=== PATIENT | female | born 1935 | race Caucasian/White ===

== ENCOUNTER 2016-05-08 16:09 | Emergency (ER) | payer MEDICARE, BC ==
[~2016-05-08] VITALS: Ht 165.1 cm; Wt 86.2 kg
[2016-05-08 16:12] VITALS: BP 202/80
--- NOTE | 2016-05-08 16:51 | EKG ---
[facility] [address] [place] [address] Test Date: 2016-05-08 Test Time: 16:42:08 Pat Name: LORIE OBRIEN Department: Room: Gender: Female Transcriptionist: = : 1935 Requested By: JOSHUA RODRIGUEZ Order Number: [id number] Reading MD: Ragini Escamilla Measurements Intervals [place] Rate: 53 P: [place]: QRS: 12 QRSD: 94 T: 19 QT: 450 QTc: 425 Interpretive Statements ATRIAL FIBRILLATION CONTROLLED VENTRICULAR RESPONSE ABNORMAL EKG Electronically Signed On 05-10-2016 11:01:15 CDT by Ragini Escamilla
[2016-05-08 16:56] LABS: BASO # 0.1 x10^3/uL (0.0-0.2); BASO % 1 % (0-3); EOS % 3 % (0-3); HEMATOCRIT 36.1 % (36.0-47.0); HEMOGLOBIN 11.5 g/dL (12.0-15.5); LYMPH % 25 % (24-48); MEAN CORPUSCULAR HEMOGLOBIN 26 pg (25-35); MEAN CORPUSCULAR HGB CONC 32 g/dL (31-37); MEAN CORPUSCULAR VOLUME 82 fL (79-100); MONO % 8 % (0-9); NEUT % 64 % (31-73); PLATELET COUNT 198 x10^3/uL (140-400); RED CELL DISTRIBUTION WIDTH 16.1 % (11.5-14.5); WHITE BLOOD COUNT 8.3 x10^3/uL (4.0-11.0)
[2016-05-08 16:58] LABS: NEG OBC FOB NEG; POS OBC FOB POS
[2016-05-08 17:05] LABS: PROTHROMBIN TIME PATIENT 21.9 SEC (11.7-14.0)
--- NOTE | 2016-05-08 17:05 | ED.ADGEN ---
Past Medical History Past Medical History: A-Fib, Hypertension Additional Past Medical Histor: diet control diabetes Past Surgical History: Appendectomy, Cholecystectomy, Hysterectomy, Tubal ligation, Other Additional Past Surgical Histo: hemorrhoidectomy, breast bx, varicose veins Alcohol Use: None Drug Use: None Adult General Chief Complaint Chief Complaint: RECTAL BLEED HPI HPI Patient is a 81 year old and, history of atrial fibrillation on Coumadin, type 2 diabetes mellitus, hypertension, who presents to the emergency department with a complaint of blood in stool. Patient states that she noted bright red blood mixed with regular brown stool yesterday, 2 episodes. States that today she noted bright red blood on her incontinence pad. She states that she is experiencing pain in the rectal area, and also pain along the left flank, which began at the same time. She states that she has episodes of constipation and diarrhea, has not experienced either over the past several days. Has not taken any medications for her bowels. She had a colonoscopy performed about 5 years ago which she states she believes was unremarkable. Denies any other areas of pain, any nausea, vomiting, weakness, numbness, tingling, shortness breath, chest pain, dysuria, fevers, chills, injuries. Review of Systems Review of Systems Constitutional: Denies fever or chills. [] Eyes: Denies change in visual acuity. [] HENT: Denies nasal congestion or sore throat. [] Respiratory: Denies cough or shortness of breath. [] Cardiovascular: Denies chest pain or edema. [] GI: Denies abdominal pain, plenty of left flank pain, nausea, vomiting or diarrhea. Bright red blood per rectum.] : Denies dysuria. [] Musculoskeletal: Denies back pain or joint pain. [] Integument: Denies rash. [] Neurologic: Denies headache, focal weakness or sensory changes. [] Endocrine: Denies polyuria or polydipsia. [] Lymphatic: Denies swollen glands. [] Psychiatric: Denies depression or anxiety. [] Current Medications Current Medications Current Medications Medications (Trade) Dose Ordered Sig/Isaura Start Time Stop Time Status Last Admin Dose Admin Dicyclomine HCl (Bentyl) 10 mg 1X ONCE 05/08/16 19:00 05/08/16 19:01 DC 05/08/16 19:03 10 MG Iohexol 60 ml 60 ml 1X ONCE 05/08/16 17:45 05/08/16 17:46 DC 05/08/16 18:02 60 ML Sodium Chloride (Iv Sodium Chloride 0.9% 500ml Bag) 500 ml @ 500 mls/hr 1X ONCE 05/08/16 19:00 05/08/16 19:59 DC 05/08/16 19:03 500 MLS/HR Allergies Allergies Allergies Coded Allergies Type Severity Reaction Last Updated Verified Sulfa (Sulfonamide Antibiotics) Allergy Intermediate 05/08/16 Yes hydrochlorothiazide Allergy Intermediate 05/08/16 Yes Physical Exam Physical Exam Constitutional: Well developed, well nourished, no acute distress, non-toxic appearance. [] HENT: Normocephalic, atraumatic, bilateral external ears normal, oropharynx moist, no oral exudates, nose normal. [] Eyes: PERRLA, EOMI, conjunctiva normal, no discharge. [] Neck: Normal range of motion, no tenderness, supple, no stridor. [] Cardiovascular:Heart rate irregular, no murmur, S1, S2, rubs or gallops. [] Lungs & Thorax: Bilateral breath sounds clear to auscultation, no wheezing, rhonchi, rales. [] Abdomen: Bowel sounds normal, soft, no rebound, rigidity, no guarding, no tenderness, no masses, no pulsatile masses. [] Skin: Warm, dry, no erythema, no rash. [] Back: No tenderness, patient with mild left lower flank tenderness, radiates towards the left hip. [] Extremities: No tenderness, no cyanosis, no clubbing, ROM intact, no edema. [] Neurologic: Alert and oriented X 3, normal motor function, normal sensory function, no focal deficits noted. [] Psychologic: Affect normal, judgement normal, mood normal. [] Rectal examination: 2 small hemorrhoids noted, nonthrombosed, no active bleeding identified, no masses palpated, patient nontender to examination, no evidence of skin breakdown or other acute findings. Patient with brown stool in vault. Current Patient Data Vital Signs Vital Signs Date Time Temp Pulse Resp B/P Pulse Ox O2 Delivery O2 Flow Rate FiO2 05/08/16 16:12 98.0 62 18 202/80 98 Room Air 98.0 Lab Values Laboratory Tests Test 05/08/16 15:25 05/08/16 16:15 05/08/16 17:21 Stool Occult Blood Negative (NEG) White Blood Count 8.3x10^3/uL (4.0-11.0) Red Blood Count 4.40x10^6/uL (3.50-5.40) Hemoglobin 11.5g/dL (12.0-15.5) L Hematocrit 36.1% (36.0-47.0) Mean Corpuscular Volume 82fL (79-100) Mean Corpuscular Hemoglobin 26pg (25-35) Mean Corpuscular Hemoglobin Concent 32g/dL (31-37) Red Cell Distribution Width 16.1% (11.5-14.5) H Platelet Count 198x10^3/uL (140-400) Neutrophils (%) (Auto) 64% (31-73) Lymphocytes (%) (Auto) 25% (24-48) Monocytes (%) (Auto) 8% (0-9) Eosinophils (%) (Auto) 3% (0-3) Basophils (%) (Auto) 1% (0-3) Neutrophils # (Auto) 5.3x10^3uL (1.8-7.7) Lymphocytes # (Auto) 2.0x10^3/uL (1.0-4.8) Monocytes # (Auto) 0.7x10^3/uL (0.0-1.1) Eosinophils # (Auto) 0.2x10^3/uL (0.0-0.7) Basophils # (Auto) 0.1x10^3/uL (0.0-0.2) Prothrombin Time 21.9SEC (11.7-14.0) H Prothrombin Time INR 2.0 (0.8-1.1) H PTT 35SEC (24-38) Sodium Level 144mmol/L (136-145) Potassium Level 3.8mmol/L (3.5-5.1) Chloride Level 109mmol/L (98-107) H Carbon Dioxide Level 23mmol/L (21-32) Anion Gap 12 (6-14) Blood Urea Nitrogen 21mg/dL (7-20) H Creatinine 1.1mg/dL (0.6-1.0) H Estimated GFR (Cockcroft-Gault) 47.6 BUN/Creatinine Ratio 19 (6-20) Glucose Level 112mg/dL (70-99) H Calcium Level 9.6mg/dL (8.5-10.1) Total Bilirubin 1.1mg/dL (0.2-1.0) H Aspartate Amino Transferase (AST) 18U/L (15-37) Alanine Aminotransferase (ALT) 18U/L (14-59) Alkaline Phosphatase 71U/L (46-116) Troponin I Quantitative < 0.017ng/mL (0.000-0.055) Total Protein 7.1g/dL (6.4-8.2) Albumin 4.0g/dL (3.4-5.0) Albumin/Globulin Ratio 1.3 (1.0-1.7) Urine Collection Type Unknown Urine Color Yellow Urine Clarity Clear Urine pH 7.0 Urine Specific [place] 1.010 Urine Protein Negativemg/dL (NEG-TRACE) Urine Glucose (UA) Negativemg/dL (NEG) Urine Ketones (Stick) Negativemg/dL (NEG) Urine Blood Negative (NEG) Urine Nitrite Negative (NEG) Urine Bilirubin Negative (NEG) Urine Urobilinogen Dipstick 0.2mg/dL (0.2 mg/dL) Urine Leukocyte Esterase Trace (NEG) Urine RBC Occ/HPF (0-2) Urine WBC 1-4/HPF (0-4) Urine Squamous Epithelial Cells Few/LPF Urine Bacteria Few/HPF (0-FEW) Laboratory Tests 05/08/16 16:15 Laboratory Tests 05/08/16 16:15 EKG EKG EC: Irregular rhythm, atrial fibrillation, heart rate 53 bpm, upright axis, QTC of 525, QRS of 94, no ST elevations or depressions, aside from atrial fibrillation, no other abnormalities identified. As interpreted by me. [] Radiology/Procedures Radiology/Procedures [] [facility] [address] [place], [place] [id number] IMAGING REPORT Signed PATIENT: LORIE OBRIEN ACCOUNT: [id number] : 1935 LOCATION: ER AGE: 81 SEX: F EXAM STATUS: REG ER ORD. PHYSICIAN: JOSHUA RODRIGUEZ DO REASON: L flank/abd pain/bloody stool PROCEDURE: ABD PELV W/ IV CONTRAST ONLY PROCEDURE CT abdomen pelvis with intravenous contrast. HISTORY Left-sided flank pain. Blood in stool. TECHNIQUE After administration of intravenous contrast only, 60 mL Omnipaque 300, CT of the abdomen and pelvis was formed. Exposure: One or more of the following individualized dose reduction techniques were utilized for this examination: 1. Automated exposure control. 2. Adjustment of the mA and/or kV according to patient size. 3. Use of iterative reconstruction technique. COMPARISON None. FINDINGS Evaluation of enteric structures may be limited by lack of oral contrast. Images of lower chest demonstrate enlargement of cardiac chambers. Liver, spleen, pancreas, and bilateral adrenal glands are unremarkable. Gallbladder is not seen and may be absent. Aortic atherosclerosis is noted. Colonic diverticulosis is noted, but no diverticulitis is appreciated. No bowel obstruction or inflammation is seen. Urinary bladder is unremarkable. Uterus is absent. No free air lower free fluid is seen in the abdomen or pelvis. Both kidneys enhance symmetrically. Both kidneys demonstrate presence of multiple several low-density lesions measuring up to 2 centimeters. Some of these lesions appear denser than simple cysts and are not adequately characterized on this examination. Degenerative changes are present in spine. IMPRESSION 1. No acute inflammatory process identified in the abdomen or pelvis. 2. Colonic diverticulosis without evidence of diverticulitis. 3. Both kidneys demonstrate nonspecific low-attenuation lesions which appear denser than simple cysts; lesions measure up to 2 centimeters. Elective, nonemergent evaluation could be attempted with ultrasound. 4. Enlargement of cardiac chambers. Electronically signed by: Vadim Bruno MD (May 08, 2016 18:31:15) DICTATED and SIGNED BY: VADIM BRUNO MD DATE: 05/08/16 1836 CC: JOSHUA RODRIGUEZ DO; CONNOR CROSS MD ~ Course & Med Decision Making Course & Med Decision Making Pertinent Labs and Imaging studies reviewed. (See chart for details) Patient well-appearing, examination of the rectum reveals 2 small hemorrhoids, no evidence of thrombosis, or active bleeding. Due to patient's complaint of flank pain, with rectal bleeding, CT of abdomen ordered, along laboratory studies. Patient's Hemoccult does not really any evidence of occult blood. CT reveals no evidence of acute inflammation or other concerning findings. Laboratory studies reveal a creatinine of 1.1, with a blood urea nitrogen of 21. Patient received IV fluids, and Bentyl emergency department. I did discuss all these findings at length with patient and family at bedside, recommended patient use sitz baths, and [id number] hemorrhoid medication such as hemorrhoidal wipes for discomfort, patient instructed to follow-up with GI, she has seen Dr. Moncada previously, also discussed with patient that she is evidence of density in the kidneys, which should be evaluated further by her primary care provider, although kidney function appears to be within normal limits, and she is not experienced problems previously. Patient was given a copy of her CT which was reviewed with her. Patient discharged home in stable condition without any further evidence of bleeding or episodes of stool in the emergency department, with plan as above. Dragon Disclaimer Dragon Disclaimer This electronic medical record was generated, in whole or in part, using a voice recognition dictation system. Departure Impression: Primary Impression: Rectal pain Disposition: HOME, SELF-CARE Condition: IMPROVED JOSHUA RODRIGUEZ DO May 08, 2016 17:05
[2016-05-08 17:23] LABS: CALCIUM 9.6 mg/dL (8.5-10.1); CREATININE 1.1 mg/dL (0.6-1.0); GFR 47.6; POTASSIUM 3.8 mmol/L (3.5-5.1)
[2016-05-08 17:28] LABS: ALBUMIN/GLOBULIN RATIO 1.3 (1.0-1.7); TOTAL BILIRUBIN 1.1 mg/dL (0.2-1.0); TOTAL PROTEIN 7.1 g/dL (6.4-8.2)
[2016-05-08 17:34] LABS: BILIRUBIN,URINE NEGATIVE (NEG); GLUCOSE,URINE NEGATIVE (NEG); NITRITE,URINE NEGATIVE (NEG); PROTEIN,URINE NEGATIVE (NEG-TRACE); UROBILINOGEN,URINE 0.2 mg/dL (0.2 mg/dL)
[2016-05-08] MEDS ORDERED: IOHEXOL 300 MG/ML 75 ML VIAL IV ONE (17:45)
[2016-05-08 17:48] LABS: BACTERIA,URINE FEW /HPF (0-FEW); RBC,URINE OCC /HPF (0-2); SQUAMOUS EPITHELIAL CELL,UR FEW /LPF
--- NOTE | 2016-05-08 18:32 | RAD ---
PROCEDURE CT abdomen pelvis with intravenous contrast. HISTORY Left-sided flank pain. Blood in stool. TECHNIQUE After administration of intravenous contrast only, 60 mL Omnipaque 300, CT of the abdomen and pelvis was formed. Exposure: One or more of the following individualized dose reduction techniques were utilized for this examination: 1. Automated exposure control. 2. Adjustment of the mA and/or kV according to patient size. 3. Use of iterative reconstruction technique. COMPARISON None. FINDINGS Evaluation of enteric structures may be limited by lack of oral contrast. Images of lower chest demonstrate enlargement of cardiac chambers. Liver, spleen, pancreas, and bilateral adrenal glands are unremarkable. Gallbladder is not seen and may be absent. Aortic atherosclerosis is noted. Colonic diverticulosis is noted, but no diverticulitis is appreciated. No bowel obstruction or inflammation is seen. Urinary bladder is unremarkable. Uterus is absent. No free air lower free fluid is seen in the abdomen or pelvis. Both kidneys enhance symmetrically. Both kidneys demonstrate presence of multiple several low-density lesions measuring up to 2 centimeters. Some of these lesions appear denser than simple cysts and are not adequately characterized on this examination. Degenerative changes are present in spine. IMPRESSION 1. No acute inflammatory process identified in the abdomen or pelvis. 2. Colonic diverticulosis without evidence of diverticulitis. 3. Both kidneys demonstrate nonspecific low-attenuation lesions which appear denser than simple cysts; lesions measure up to 2 centimeters. Elective, nonemergent evaluation could be attempted with ultrasound. 4. Enlargement of cardiac chambers. Electronically signed by: Vadim Carpenter MD (May 08, 2016 18:31:15)
[2016-05-08] MEDS ORDERED: IV NORMAL SALINE 500ML BAG 500 ML IV ONE (19:00)
[2016-05-08] MEDS ORDERED: DICYCLOMINE HCL 10 MG CAPSULE PO ONE (19:00)
== END 2016-05-08 20:07 | disposition home or self-care (01) ==
LOC: ER 16:09
DX: K64.9 Unspecified hemorrhoids (principal); K92.1 Melena; E11.9 Type 2 diabetes mellitus without complications; I10 Essential (primary) hypertension; I48.91 Unspecified atrial fibrillation; Z90.49 Acquired absence of other specified parts of digestive tract; Z90.710 Acquired absence of both cervix and uterus; Z98.890 Other specified postprocedural states; Z98.51 Tubal ligation status; Z88.8 Allergy status to other drugs, medicaments and biological substances; Z88.2 Allergy status to sulfonamides; Z79.01 Long term (current) use of anticoagulants
CPT/HCPCS: 36415; 74177; 80053; 81001; 82274; 84484; 85027; 85610; 85730; 87086; 93005; 96360; 99285; J7040; Q9967

== ENCOUNTER → 2016-08-09 | Outpatient (CLI) | payer MEDICARE, BC ==
[2016-08-09 11:56] LABS: CALCIUM 9.8 mg/dL (8.5-10.1); CREATININE 1.1 mg/dL (0.6-1.0); GFR 47.6; POTASSIUM 4.7 mmol/L (3.5-5.1)
== END | disposition home or self-care (01) ==
LOC: LAB 11:11
PROVIDERS: ATTEND Internal Medicine Interventional Cardiology
DX: I50.31 Acute diastolic (congestive) heart failure (principal)
CPT/HCPCS: 36415; 80048

== ENCOUNTER 2016-10-22 02:12 | Emergency (ER) | payer MEDICARE, BC ==
[~2016-10-22] VITALS: Ht 165.1 cm; Wt 86.2 kg
--- NOTE | 2016-10-22 03:19 | PHYS DOC ---
Past Medical History Past Medical History: A-Fib, CHF, Diabetes-Type II, GERD, High Cholesterol, Hypertension Additional Past Medical Histor: diet control diabetes Past Surgical History: Appendectomy, Cholecystectomy, Hysterectomy, Tubal ligation, Other Additional Past Surgical Histo: vericose vein surgery Alcohol Use: None Drug Use: None Adult General Chief Complaint Chief Complaint: WEAKNESS/GENERALIZED HPI HPI Patient is a 81 year old female who presents with complaint of generalized fatigue. Patient states that she has been having trouble fatigue over the past 1 -2 weeks. Patient states that she has had similar episodes in the past that have resolved spontaneously. The patient however states that her symptoms seem to be worsening over the past few days. Patient also states that she has developed pain in her left shoulder which started earlier this evening and has progressed over the past several hours. Patient states that the pain worsens when she moves her left upper extremity. Patient rates her pain currently as 5 out of 10. The patient states that she is able to ambulate under her own power but states that she gets tired very easily with normal activities including doing dishes and other normal activities at home. Patient has history of congestive heart failure, atrial fibrillation and is currently on warfarin therapy. Patient states her last INR was 2.5. The patient also has history of " a leaky valve" but does not know which valve is affected. Patient denies any worsening dyspnea on exertion or lower extremity edema. Review of Systems Review of Systems Constitutional: Generalized fatigue, denies fever or chills [] Eyes: Denies change in visual acuity, redness, or eye pain [] HENT: Denies nasal congestion or sore throat [] Respiratory: Denies cough or shortness of breath [] Cardiovascular: Denies chest pain or edema [] GI: Denies abdominal pain, nausea, vomiting, bloody stools or diarrhea [] : Denies dysuria or hematuria [] Musculoskeletal: Left shoulder. [] Integument: Denies rash or skin lesions [] Neurologic: Denies headache, focal weakness or sensory changes [] Current Medications Current Medications Current Medications Medications (Trade) Dose Ordered Sig/Isaura Start Time Stop Time Status Last Admin Dose Admin Sodium Chloride 500 ml @ 500 mls/hr 1X ONCE 10/22/16 03:30 10/22/16 04:29 DC 10/22/16 03:50 500 MLS/HR Allergies Allergies Allergies Coded Allergies Type Severity Reaction Last Updated Verified Sulfa (Sulfonamide Antibiotics) Allergy Intermediate 05/08/16 Yes hydrochlorothiazide Allergy Intermediate 05/08/16 Yes Physical Exam Physical Exam Constitutional: Alert, afebrile, no acute distress. [] HENT: Normocephalic, atraumatic, bilateral external ears normal, oropharynx moist, no oral exudates, nose normal. [] Eyes: PERRLA, EOMI, conjunctiva normal, no discharge. [] Neck: Normal range of motion, no tenderness, supple, no stridor. [] Cardiovascular: Irregular rhythm, normal rate, no murmur [] Lungs & Thorax: Bilateral breath sounds clear to auscultation [] Abdomen: Bowel sounds normal, soft, no tenderness, no masses, no pulsatile masses. [] Skin: Warm, dry, no erythema, no rash. [] Back: No tenderness, no CVA tenderness. [] Extremities: No tenderness, no cyanosis, no clubbing, ROM intact, no edema. [] Neurologic: Alert and oriented X 3, normal motor function, normal sensory function, no focal deficits noted. [] Current Patient Data Vital Signs Vital Signs Date Time Temp Pulse Resp B/P (MAP) Pulse Ox O2 Delivery O2 Flow Rate FiO2 10/22/16 05:02 64 18 172/78 (109) 98 Room Air 10/22/16 02:25 98.0 98.0 Lab Values Laboratory Tests Test 10/22/16 02:40 10/22/16 02:52 10/22/16 03:41 White Blood Count 9.9 x10^3/uL (4.0-11.0) Red Blood Count 4.24 x10^6/uL (3.50-5.40) Hemoglobin 11.5 g/dL (12.0-15.5) L Hematocrit 35.2 % (36.0-47.0) L Mean Corpuscular Volume 83 fL (79-100) Mean Corpuscular Hemoglobin 27 pg (25-35) Mean Corpuscular Hemoglobin Concent 33 g/dL (31-37) Red Cell Distribution Width 15.7 % (11.5-14.5) H Platelet Count 193 x10^3/uL (140-400) Neutrophils (%) (Auto) 71 % (31-73) Lymphocytes (%) (Auto) 21 % (24-48) L Monocytes (%) (Auto) 6 % (0-9) Eosinophils (%) (Auto) 2 % (0-3) Basophils (%) (Auto) 1 % (0-3) Neutrophils # (Auto) 7.0 x10^3uL (1.8-7.7) Lymphocytes # (Auto) 2.0 x10^3/uL (1.0-4.8) Monocytes # (Auto) 0.6 x10^3/uL (0.0-1.1) Eosinophils # (Auto) 0.2 x10^3/uL (0.0-0.7) Basophils # (Auto) 0.1 x10^3/uL (0.0-0.2) Prothrombin Time 21.8 SEC (11.7-14.0) H Prothrombin Time INR 2.0 (0.8-1.1) H PTT 37 SEC (24-38) Sodium Level 142 mmol/L (136-145) Potassium Level 3.9 mmol/L (3.5-5.1) Chloride Level 107 mmol/L (98-107) Carbon Dioxide Level 24 mmol/L (21-32) Anion Gap 11 (6-14) Blood Urea Nitrogen 18 mg/dL (7-20) Creatinine 1.1 mg/dL (0.6-1.0) H Estimated GFR (Cockcroft-Gault) 47.6 BUN/Creatinine Ratio 16 (6-20) Glucose Level 115 mg/dL (70-99) H Calcium Level 9.6 mg/dL (8.5-10.1) Magnesium Level 2.2 mg/dL (1.8-2.4) Total Bilirubin 1.0 mg/dL (0.2-1.0) Aspartate Amino Transferase (AST) 20 U/L (15-37) Alanine Aminotransferase (ALT) 26 U/L (14-59) Alkaline Phosphatase 75 U/L (46-116) Creatine Kinase 107 U/L (26-192) Creatine Kinase MB (Mass) 1.7 ng/mL (0.0-3.6) Creatine Kinase MB Relative Index 1.6 % (0-4) Troponin I Quantitative < 0.017 ng/mL (0.000-0.055) Total Protein 7.5 g/dL (6.4-8.2) Albumin 4.1 g/dL (3.4-5.0) Albumin/Globulin Ratio 1.2 (1.0-1.7) Glucose (Fingerstick) 130 mg/dL (70-99) H Urine Collection Type Unknown Urine Color Yellow Urine Clarity Clear Urine pH 6.0 Urine Specific [place] <=1.005 Urine Protein Negative mg/dL (NEG-TRACE) Urine Glucose (UA) Negative mg/dL (NEG) Urine Ketones (Stick) Negative mg/dL (NEG) Urine Blood Negative (NEG) Urine Nitrite Negative (NEG) Urine Bilirubin Negative (NEG) Urine Urobilinogen Dipstick 0.2 mg/dL (0.2 mg/dL) Urine Leukocyte Esterase Small (NEG) Urine RBC 1-2 /HPF (0-2) Urine WBC 5-10 /HPF (0-4) Urine Squamous Epithelial Cells Few /LPF Urine Bacteria 0 /HPF (0-FEW) Laboratory Tests 10/22/16 02:40 Laboratory Tests 10/22/16 02:40 EKG EKG Interpreted by me: Heart rate 72, atrial fibrillation, no acute ST/T-wave abnormalities present [] Radiology/Procedures Radiology/Procedures One view AP chest x-ray interpreted by me: Pulmonary vascular congestion, no significant effusion, mild cardiomegaly [] Course & Med Decision Making Course & Med Decision Making Pertinent Labs and Imaging studies reviewed. (See chart for details) Patient's blood work was unremarkable in the emergency department. I recommended that the patient follow-up with her primary doctor in 2 days for reevaluation. The patient denies any dyspnea on exertion though I did recommend that she follow up with cardiology as she will need to have an echocardiogram to see if congestive heart failure may be contributing to her symptoms. Recommended return emergency department for any worsening symptoms. Patient voiced understanding and in agreement with treatment plan. Dragon Disclaimer Dragon Disclaimer This electronic medical record was generated, in whole or in part, using a voice recognition dictation system. Departure Departure Impression: Primary Impression: Fatigue Disposition: 01 HOME, SELF-CARE Condition: STABLE Referrals: CONNOR CROSS MD (PCP) Patient Instructions: Fatigue Additional Instructions: Follow-up with your primary doctor in 2-3 days for reevaluation. Return to emergency department for any worsening symptoms. Problem Qualifiers Primary Impression: Fatigue Fatigue type: unspecified Qualified Codes: R53.83 - Other fatigue JUANA OG MD Oct 22, 2016 03:19
[2016-10-22 03:29] LABS: BASO # 0.1 x10^3/uL (0.0-0.2); BASO % 1 % (0-3); EOS % 2 % (0-3); HEMATOCRIT 35.2 % (36.0-47.0); HEMOGLOBIN 11.5 g/dL (12.0-15.5); LYMPH % 21 % (24-48); MEAN CORPUSCULAR HEMOGLOBIN 27 pg (25-35); MEAN CORPUSCULAR HGB CONC 33 g/dL (31-37); MEAN CORPUSCULAR VOLUME 83 fL (79-100); MONO % 6 % (0-9); NEUT % 71 % (31-73); PLATELET COUNT 193 x10^3/uL (140-400); RED BLOOD COUNT 4.24 x10^6/uL (3.50-5.40); RED CELL DISTRIBUTION WIDTH 15.7 % (11.5-14.5); WHITE BLOOD COUNT 9.9 x10^3/uL (4.0-11.0)
[2016-10-22] MEDS ORDERED: IV NORMAL SALINE 500ML BAG 500 ML IV ONE (03:30)
[2016-10-22 03:39] LABS: PROTHROMBIN TIME PATIENT 21.8 SEC (11.7-14.0)
[2016-10-22 03:42] LABS: CALCIUM 9.6 mg/dL (8.5-10.1); CREATININE 1.1 mg/dL (0.6-1.0); GFR 47.6; POTASSIUM 3.9 mmol/L (3.5-5.1)
[2016-10-22 03:47] LABS: BILIRUBIN,URINE NEGATIVE (NEG); GLUCOSE,URINE NEGATIVE (NEG); NITRITE,URINE NEGATIVE (NEG); PROTEIN,URINE NEGATIVE (NEG-TRACE); UROBILINOGEN,URINE 0.2 mg/dL (0.2 mg/dL)
[2016-10-22 03:48] LABS: ALBUMIN 4.1 g/dL (3.4-5.0); ALBUMIN/GLOBULIN RATIO 1.2 (1.0-1.7); MAGNESIUM 2.2 mg/dL (1.8-2.4); TOTAL PROTEIN 7.5 g/dL (6.4-8.2)
[2016-10-22 03:55] LABS: CKMB MASS 1.7 ng/mL (0.0-3.6)
[2016-10-22 03:57] LABS: BACTERIA,URINE 0 /HPF (0-FEW); SQUAMOUS EPITHELIAL CELL,UR FEW /LPF
[2016-10-22 05:02] VITALS: BP 172/78
--- NOTE | 2016-10-22 09:56 | RAD ---
AP chest radiograph 10/22/2016 Clinical indication: Increasing fatigue and left shoulder pain. Comparison: Chest radiograph 04/14/2013. Findings: Mild enlargement of the cardiac silhouette and pulmonary venous hypertension with mild interstitial opacities. No pleural effusion, pneumothorax or focal consolidation. Impression: Findings suggestive of mild CHF and/or volume overload with cardiac enlargement and pulmonary edema These results results were discussed with Dr. Manzanares of the emergency service by telephone at 9:55 AM 10/22/[address] Jeff Moore.
--- NOTE | 2016-10-22 13:00 | EKG ---
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
== END 2016-10-22 05:01 | disposition home or self-care (01) ==
LOC: ER 02:12
DX: R53.83 Other fatigue (principal); M25.512 Pain in left shoulder; I48.91 Unspecified atrial fibrillation; I11.0 Hypertensive heart disease with heart failure; I50.9 Heart failure, unspecified; E11.9 Type 2 diabetes mellitus without complications; K21.9 Gastro-esophageal reflux disease without esophagitis; E78.00 Pure hypercholesterolemia, unspecified; Z79.01 Long term (current) use of anticoagulants; Z90.49 Acquired absence of other specified parts of digestive tract; Z88.2 Allergy status to sulfonamides; Z88.8 Allergy status to other drugs, medicaments and biological substances
CPT/HCPCS: 36415; 71010; 80053; 81001; 82553; 82962; 83735; 84484; 85025; 85610; 85730; 87086; 93005; 96360; 99285; J7040

== ENCOUNTER 2017-11-09 03:36 | Emergency (ER) | payer MEDICARE, BC ==
[~2017-11-09] VITALS: Ht 154.9 cm; Wt 86.2 kg
[2017-11-09 03:39] VITALS: BP 184/83
[2017-11-09 04:20] LABS: BASO # 0.1 x10^3/uL (0.0-0.2); BASO % 1 % (0-3); EOS # 0.2 x10^3/uL (0.0-0.7); EOS % 2 % (0-3); HEMATOCRIT 35.7 % (36.0-47.0); LYMPH # 2.5 x10^3/uL (1.0-4.8); LYMPH % 25 % (24-48); MEAN CORPUSCULAR HEMOGLOBIN 26 pg (25-35); MEAN CORPUSCULAR HGB CONC 34 g/dL (31-37); MEAN CORPUSCULAR VOLUME 78 fL (79-100); MONO # 0.7 x10^3/uL (0.0-1.1); MONO % 7 % (0-9); NEUT # 6.5 x10^3uL (1.8-7.7); NEUT % 65 % (31-73); PLATELET COUNT 241 x10^3/uL (140-400); RED BLOOD COUNT 4.59 x10^6/uL (3.50-5.40); RED CELL DISTRIBUTION WIDTH 17.4 % (11.5-14.5); WHITE BLOOD COUNT 10.1 x10^3/uL (4.0-11.0)
[2017-11-09 04:29] LABS: CALCIUM 9.3 mg/dL (8.5-10.1); CREATININE 1.4 mg/dL (0.6-1.0); GFR 35.9; POTASSIUM 4.1 mmol/L (3.5-5.1)
[2017-11-09 04:35] LABS: ALBUMIN 4.1 g/dL (3.4-5.0); ALBUMIN/GLOBULIN RATIO 1.2 (1.0-1.7); MAGNESIUM 2.1 mg/dL (1.8-2.4); TOTAL BILIRUBIN 0.6 mg/dL (0.2-1.0); TOTAL PROTEIN 7.4 g/dL (6.4-8.2)
--- NOTE | 2017-11-09 04:56 | PHYS DOC ---
Past Medical History Past Medical History: A-Fib, CHF, Diabetes-Type II, GERD, High Cholesterol, Hypertension Additional Past Medical Histor: diet control diabetes Past Surgical History: Appendectomy, Cholecystectomy, Hysterectomy, Tubal ligation, Other Additional Past Surgical Histo: vericose vein surgery Alcohol Use: None Drug Use: None Adult General Chief Complaint Chief Complaint: Palpitations HPI HPI Patient is a 82 year old female brought in by ambulance with palpitation she says it feels like her heart is swishing around She's had this for several days actually for relief for several weeks. Ever since she has been started on spironolactone she does not like the way makes her feel. No chest pain no shortness of breath Review of Systems Review of Systems Constitutional: Denies fever or chills [] Eyes: Denies change in visual acuity, redness, or eye pain [] GI: Denies abdominal pain, nausea, vomiting, bloody stools or diarrhea [] : Denies dysuria or hematuria [] Musculoskeletal: Denies back pain or joint pain [] Integument: Rash from urinating so much from the furosemide Neurologic: Denies headache, focal weakness or sensory changes [] Endocrine: Denies polyuria or polydipsia [] All other systems were reviewed and found to be within normal limits, except as documented in this note. Allergies Allergies Allergies Coded Allergies Type Severity Reaction Last Updated Verified Sulfa (Sulfonamide Antibiotics) Allergy Intermediate 05/08/16 Yes hydrochlorothiazide Allergy Intermediate 05/08/16 Yes Physical Exam Physical Exam Constitutional: Well developed, well nourished, no acute distress, non-toxic appearance. [] HENT: Normocephalic, atraumatic, bilateral external ears normal, oropharynx moist, no oral exudates, nose normal. [] Eyes: PERRLA, EOMI, conjunctiva normal, no discharge. [] Neck: Normal range of motion, no tenderness, supple, no stridor. [] Cardiovascular: Irregular no definite murmur Lungs & Thorax: Bilateral breath sounds clear to auscultation [] Abdomen: Bowel sounds normal, soft, no tenderness, no masses, no pulsatile masses. [] Skin: Warm, dry, no erythema, no rash. [] Back: No tenderness, no CVA tenderness. [] Extremities: No tenderness, no cyanosis, no clubbing, ROM intact, 1+ bilateral Neurologic: Alert and oriented X 3, normal motor function, normal sensory function, no focal deficits noted. [] Psychologic: Affect normal, judgement normal, mood normal. [] Current Patient Data Vital Signs Vital Signs Date Time Temp Pulse Resp B/P (MAP) Pulse Ox O2 Delivery O2 Flow Rate FiO2 11/09/17 03:39 98.1 64 18 184/83 (116) 97 Room Air 98.1 Lab Values Laboratory Tests Test 11/09/17 03:58 White Blood Count 10.1 x10^3/uL (4.0-11.0) Red Blood Count 4.59 x10^6/uL (3.50-5.40) Hemoglobin 12.0 g/dL (12.0-15.5) Hematocrit 35.7 % (36.0-47.0) L Mean Corpuscular Volume 78 fL (79-100) L Mean Corpuscular Hemoglobin 26 pg (25-35) Mean Corpuscular Hemoglobin Concent 34 g/dL (31-37) Red Cell Distribution Width 17.4 % (11.5-14.5) H Platelet Count 241 x10^3/uL (140-400) Neutrophils (%) (Auto) 65 % (31-73) Lymphocytes (%) (Auto) 25 % (24-48) Monocytes (%) (Auto) 7 % (0-9) Eosinophils (%) (Auto) 2 % (0-3) Basophils (%) (Auto) 1 % (0-3) Neutrophils # (Auto) 6.5 x10^3uL (1.8-7.7) Lymphocytes # (Auto) 2.5 x10^3/uL (1.0-4.8) Monocytes # (Auto) 0.7 x10^3/uL (0.0-1.1) Eosinophils # (Auto) 0.2 x10^3/uL (0.0-0.7) Basophils # (Auto) 0.1 x10^3/uL (0.0-0.2) Sodium Level 141 mmol/L (136-145) Potassium Level 4.1 mmol/L (3.5-5.1) Chloride Level 104 mmol/L (98-107) Carbon Dioxide Level 22 mmol/L (21-32) Anion Gap 15 (6-14) H Blood Urea Nitrogen 25 mg/dL (7-20) H Creatinine 1.4 mg/dL (0.6-1.0) H Estimated GFR (Cockcroft-Gault) 35.9 BUN/Creatinine Ratio 18 (6-20) Glucose Level 140 mg/dL (70-99) H Calcium Level 9.3 mg/dL (8.5-10.1) Magnesium Level 2.1 mg/dL (1.8-2.4) Total Bilirubin 0.6 mg/dL (0.2-1.0) Aspartate Amino Transferase (AST) 15 U/L (15-37) Alanine Aminotransferase (ALT) 18 U/L (14-59) Alkaline Phosphatase 88 U/L (46-116) Troponin I Quantitative < 0.017 ng/mL (0.000-0.055) Total Protein 7.4 g/dL (6.4-8.2) Albumin 4.1 g/dL (3.4-5.0) Albumin/Globulin Ratio 1.2 (1.0-1.7) Laboratory Tests 11/09/17 03:58 Laboratory Tests 11/09/17 03:58 EKG EKG [] Interpretation Time: A. fib rate 57 no acute ischemic changes noted interpreted by me the time of encounter. Radiology/Procedures Radiology/Procedures [] Impressions: Recommendation chest x-ray shows normal lungs normal bones possible mild cardiomegaly Course & Med Decision Making Course & Med Decision Making Pertinent Labs and Imaging studies reviewed. (See chart for details) []This is an 82-year-old female with known atrial fibrillation presenting with sensation of palpitations with a heart rate in the 50s and 60s she describes as a "swishing". She appears mildly anxious I suspect that is the primary etiology. She actually agrees and was asking if she could examine accident home which I think is reasonable. Her electrolytes are stable. She was worried about elevated calcium which she has had in the past but it is 9.3 today. Patient was reassured to the best of my ability and was advised to follow-up with her primary care doctor regarding questions about her diuretics Dragon Disclaimer Dragon Disclaimer This electronic medical record was generated, in whole or in part, using a voice recognition dictation system. Departure Departure Impression: Primary Impression: Palpitation Disposition: HOME, SELF-CARE Condition: IMPROVED Patient Instructions: Palpitations, [id number] EMILY FOURNIER MD Nov 09, 2017 04:56
--- NOTE | 2017-11-09 06:18 | EKG ---
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
--- NOTE | 2017-11-09 07:59 | RAD ---
Portable chest, 11/09/2017: HISTORY: Shortness of breath Comparison is made to a study from 10/22/2016. The heart is enlarged. There is calcific plaquing of the aorta. The pulmonary vascularity is normal. No pulmonary infiltrate is seen. There is no evidence of pleural fluid. IMPRESSION: 1. Unchanged cardiomegaly. 2. No acute infiltrates. Electronically signed by: Brando Bhardwaj MD (11/09/2017 7:56 AM) [facility]
== END 2017-11-09 05:17 | disposition home or self-care (01) ==
LOC: ER 03:36
DX: R00.2 Palpitations (principal); I48.91 Unspecified atrial fibrillation; I11.0 Hypertensive heart disease with heart failure; I50.9 Heart failure, unspecified; E11.9 Type 2 diabetes mellitus without complications; K21.9 Gastro-esophageal reflux disease without esophagitis; E78.00 Pure hypercholesterolemia, unspecified; Z88.2 Allergy status to sulfonamides; Z88.8 Allergy status to other drugs, medicaments and biological substances
CPT/HCPCS: 36415; 71045; 80053; 83735; 84484; 85025; 93005; 99285

== ENCOUNTER 2018-07-19 09:34 | Inpatient (IN) | payer MEDICARE, BC ==
[~2018-07-19] VITALS: Ht 165.1 cm; Wt 84.8 kg
--- NOTE | 2018-07-19 10:01 | PHYS DOC ---
Past Medical History Past Medical History: A-Fib, CHF, Diabetes-Type II, GERD, High Cholesterol, Hypertension Additional Past Medical Histor: diet control diabetes (INOCENTE MEDINA APRN) Past Surgical History: Appendectomy, Cholecystectomy, Hysterectomy, Tubal ligation, Other Additional Past Surgical Histo: vericose vein surgery (INOCENTE MEDINA APRN) Additional Information: non smoker Alcohol Use: None Drug Use: None (INOCENTE MEDINA APRN) Adult General Chief Complaint Chief Complaint: CHEST PAIN HPI HPI Patient is a 83 year old female presents with chest pain that started at 7:00 this morning. The patient states that the chest pain is radiating to her back. The patient took 2 nitros prior to arrival no initial relief the patient's pain is now down to 0. Patient has a history of A. fib that is controlled. Rates pain 0 out of 10 area states the pain is intermittent. No interventions prior to arrival with exception of nitroglycerin. Refused aspirin per EMS due to the fact she is on warfarin. (INOCENTE MEDINA APRN) Review of Systems Review of Systems Constitutional: Denies fever or chills [] Eyes: Denies change in visual acuity, redness, or eye pain [] HENT: Denies nasal congestion or sore throat [] Respiratory: Denies cough or shortness of breath [] Cardiovascular: Reports Chest pain, denies syncope. GI: Denies abdominal pain, nausea, vomiting, bloody stools or diarrhea [] : Denies dysuria or hematuria. Musculoskeletal: Denies back pain or joint pain [] Integument: Denies rash or skin lesions [] Neurologic: Denies headache, focal weakness or sensory changes [] Endocrine: Reports polyuria but denies polydipsia [] Complete systems were reviewed and found to be within normal limits, except as documented in this note. (INOCENTE MEDINA APRN) Current Medications Current Medications Current Medications Medications (Trade) Dose Ordered Sig/Isaura Start Time Stop Time Status Last Admin Dose Admin Hydralazine HCl (Apresoline Inj) 10 mg 1X STAT 07/19/18 10:25 07/19/18 10:27 DC 07/19/18 10:30 10 MG Morphine Sulfate (Morphine Sulfate) 2 mg 1X ONCE 07/19/18 11:00 07/19/18 11:01 DC 07/19/18 11:13 2 MG (INOCENTE PHELAN DO) Allergies Allergies Allergies Coded Allergies Type Severity Reaction Last Updated Verified Sulfa (Sulfonamide Antibiotics) Allergy Intermediate 05/08/16 Yes hydrochlorothiazide Allergy Intermediate 05/08/16 Yes (INOCENTE PHELAN DO) Physical Exam Physical Exam Constitutional: Well developed, well nourished, no acute distress, non-toxic appearance. [] HENT: Normocephalic, atraumatic, bilateral external ears normal, oropharynx moist, no oral exudates, nose normal. [] Eyes: PERRLA, EOMI, conjunctiva normal, no discharge. [] Neck: Normal range of motion, no tenderness, supple, no stridor. [] Cardiovascular:Heart rate regular rhythm, no murmur [] Lungs & Thorax: Bilateral breath sounds clear to auscultation [] Abdomen: Bowel sounds normal, soft, no tenderness, no masses, no pulsatile masses. [] Skin: Warm, dry, no erythema, no rash. [] Back: No tenderness, no CVA tenderness. [] Extremities: No tenderness, no cyanosis, no clubbing, ROM intact, no edema. [] Neurologic: Alert and oriented X 3, normal motor function, normal sensory function, no focal deficits noted. [] Psychologic: Affect normal, judgement normal, mood normal. [] (INOCENTE MEDINA APRN) Current Patient Data Vital Signs Vital Signs Date Time Temp Pulse Resp B/P (MAP) Pulse Ox O2 Delivery O2 Flow Rate FiO2 07/19/18 11:43 Room Air 07/19/18 11:30 70 18 198/88 (124) 98 07/19/18 09:40 98.1 98.1 (INOCENTE PHELAN DO) Lab Values Laboratory Tests Test 07/19/18 09:55 07/19/18 10:05 Urine Collection Type Void Urine Color Yellow Urine Clarity Clear Urine pH 6.0 Urine Specific [place] <=1.005 Urine Protein Negative mg/dL (NEG-TRACE) Urine Glucose (UA) Negative mg/dL (NEG) Urine Ketones (Stick) Negative mg/dL (NEG) Urine Blood Negative (NEG) Urine Nitrite Negative (NEG) Urine Bilirubin Negative (NEG) Urine Urobilinogen Dipstick 0.2 mg/dL (0.2 mg/dL) Urine Leukocyte Esterase Negative (NEG) Urine RBC Occ /HPF (0-2) Urine WBC Occ /HPF (0-4) Urine Squamous Epithelial Cells Occ /LPF Urine Bacteria 0 /HPF (0-FEW) White Blood Count 7.8 x10^3/uL (4.0-11.0) Red Blood Count 4.31 x10^6/uL (3.50-5.40) Hemoglobin 11.2 g/dL (12.0-15.5) L Hematocrit 34.5 % (36.0-47.0) L Mean Corpuscular Volume 80 fL (79-100) Mean Corpuscular Hemoglobin 26 pg (25-35) Mean Corpuscular Hemoglobin Concent 33 g/dL (31-37) Red Cell Distribution Width 17.7 % (11.5-14.5) H Platelet Count 199 x10^3/uL (140-400) Neutrophils (%) (Auto) 67 % (31-73) Lymphocytes (%) (Auto) 22 % (24-48) L Monocytes (%) (Auto) 7 % (0-9) Eosinophils (%) (Auto) 3 % (0-3) Basophils (%) (Auto) 1 % (0-3) Neutrophils # (Auto) 5.2 x10^3uL (1.8-7.7) Lymphocytes # (Auto) 1.7 x10^3/uL (1.0-4.8) Monocytes # (Auto) 0.5 x10^3/uL (0.0-1.1) Eosinophils # (Auto) 0.2 x10^3/uL (0.0-0.7) Basophils # (Auto) 0.1 x10^3/uL (0.0-0.2) Prothrombin Time 26.5 SEC (11.7-14.0) H Prothrombin Time INR 2.5 (0.8-1.1) H Sodium Level 142 mmol/L (136-145) Potassium Level 4.3 mmol/L (3.5-5.1) Chloride Level 107 mmol/L (98-107) Carbon Dioxide Level 25 mmol/L (21-32) Anion Gap 10 (6-14) Blood Urea Nitrogen 24 mg/dL (7-20) H Creatinine 1.0 mg/dL (0.6-1.0) Estimated GFR (Cockcroft-Gault) 52.8 BUN/Creatinine Ratio 24 (6-20) H Glucose Level 112 mg/dL (70-99) H Calcium Level 9.5 mg/dL (8.5-10.1) Magnesium Level 2.2 mg/dL (1.8-2.4) Total Bilirubin 0.5 mg/dL (0.2-1.0) Aspartate Amino Transferase (AST) 20 U/L (15-37) Alanine Aminotransferase (ALT) 23 U/L (14-59) Alkaline Phosphatase 97 U/L (46-116) Troponin I Quantitative < 0.017 ng/mL (0.000-0.055) RO-Xfp-B-Type Natriuretic Peptide 1364 pg/mL (0-449) H Total Protein 7.6 g/dL (6.4-8.2) Albumin 4.0 g/dL (3.4-5.0) Albumin/Globulin Ratio 1.1 (1.0-1.7) Laboratory Tests 07/19/18 10:05 Laboratory Tests 07/19/18 10:05 (INOCENTE PHELAN DO) Lab Values Laboratory Tests Test 07/19/18 09:55 07/19/18 10:05 Urine Collection Type Void Urine Color Yellow Urine Clarity Clear Urine pH 6.0 Urine Specific [place] <=1.005 Urine Protein Negative mg/dL (NEG-TRACE) Urine Glucose (UA) Negative mg/dL (NEG) Urine Ketones (Stick) Negative mg/dL (NEG) Urine Blood Negative (NEG) Urine Nitrite Negative (NEG) Urine Bilirubin Negative (NEG) Urine Urobilinogen Dipstick 0.2 mg/dL (0.2 mg/dL) Urine Leukocyte Esterase Negative (NEG) Urine RBC Occ /HPF (0-2) Urine WBC Occ /HPF (0-4) Urine Squamous Epithelial Cells Occ /LPF Urine Bacteria 0 /HPF (0-FEW) White Blood Count 7.8 x10^3/uL (4.0-11.0) Red Blood Count 4.31 x10^6/uL (3.50-5.40) Hemoglobin 11.2 g/dL (12.0-15.5) L Hematocrit 34.5 % (36.0-47.0) L Mean Corpuscular Volume 80 fL (79-100) Mean Corpuscular Hemoglobin 26 pg (25-35) Mean Corpuscular Hemoglobin Concent 33 g/dL (31-37) Red Cell Distribution Width 17.7 % (11.5-14.5) H Platelet Count 199 x10^3/uL (140-400) Neutrophils (%) (Auto) 67 % (31-73) Lymphocytes (%) (Auto) 22 % (24-48) L Monocytes (%) (Auto) 7 % (0-9) Eosinophils (%) (Auto) 3 % (0-3) Basophils (%) (Auto) 1 % (0-3) Neutrophils # (Auto) 5.2 x10^3uL (1.8-7.7) Lymphocytes # (Auto) 1.7 x10^3/uL (1.0-4.8) Monocytes # (Auto) 0.5 x10^3/uL (0.0-1.1) Eosinophils # (Auto) 0.2 x10^3/uL (0.0-0.7) Basophils # (Auto) 0.1 x10^3/uL (0.0-0.2) Prothrombin Time 26.5 SEC (11.7-14.0) H Prothrombin Time INR 2.5 (0.8-1.1) H Sodium Level 142 mmol/L (136-145) Potassium Level 4.3 mmol/L (3.5-5.1) Chloride Level 107 mmol/L (98-107) Carbon Dioxide Level 25 mmol/L (21-32) Anion Gap 10 (6-14) Blood Urea Nitrogen 24 mg/dL (7-20) H Creatinine 1.0 mg/dL (0.6-1.0) Estimated GFR (Cockcroft-Gault) 52.8 BUN/Creatinine Ratio 24 (6-20) H Glucose Level 112 mg/dL (70-99) H Calcium Level 9.5 mg/dL (8.5-10.1) Magnesium Level 2.2 mg/dL (1.8-2.4) Total Bilirubin 0.5 mg/dL (0.2-1.0) Aspartate Amino Transferase (AST) 20 U/L (15-37) Alanine Aminotransferase (ALT) 23 U/L (14-59) Alkaline Phosphatase 97 U/L (46-116) Troponin I Quantitative < 0.017 ng/mL (0.000-0.055) ST-Dhi-X-Type Natriuretic Peptide 1364 pg/mL (0-449) H Total Protein 7.6 g/dL (6.4-8.2) Albumin 4.0 g/dL (3.4-5.0) Albumin/Globulin Ratio 1.1 (1.0-1.7) Laboratory Tests 07/19/18 10:05 Laboratory Tests 07/19/18 10:05 (INOCENTE MEDINA APRN) EKG EKG EKG interpreted by Dr. Phelan Sinus Rhythm with rate of 70. No STEMI[] (INOCENTE MEDINA APRN) Radiology/Procedures Radiology/Procedures []PATIENT: LORIE OBRIEN MACCOUNT: [id number]#: [id number] : 1935 LOCATION: ER AGE: 83 SEX: F EXAM STATUS: PRE ER ORD. PHYSICIAN: INOCENTE MEDINA APRN REASON: cp PROCEDURE: PORTABLE CHEST 1V Portable chest, 07/19/2018: HISTORY: Chest pain Comparison is made to a study from 11/09/2017. The heart is mildly enlarged. There is calcific plaquing of the aorta. There is minimal linear scarring in the right perihilar region. No pulmonic consolidation is seen. There is no evidence of pleural fluid. The bony structures are demineralized. IMPRESSION: 1. Cardiomegaly and aortic atherosclerosis. 2. No acute cardiopulmonary abnormality is detected. Electronically signed by: Brando Bhardwaj MD (07/19/2018 10:35 AM) [facility] (INOCENTE MEDINA APRN) Course & Med Decision Making Course & Med Decision Making Pertinent Labs and Imaging studies reviewed. (See chart for details) Will get labs, chest x-ray, monitor and EKG. Patient is agreeable. Labs show high BUN, hemoglobin that is slightly low, have no labs for comparison. Troponin is negative. Blood pressure is 219 systolic. Will order 10 mg of hydralazine IVP. Heart Pathway score is 4. Patient is having uncontrolled hypertension in ER which could warrant further workup. Will call hospitalist for admission. Talked to Dr. Soni who will admit. (INOCENTE MEDINA APRN) Dragon Disclaimer Dragon Disclaimer This electronic medical record was generated, in whole or in part, using a voice recognition dictation system. (INOCENTE MEDINA APRN) Departure Departure Impression: Primary Impression: Hypertensive urgency Additional Impression: Chest pain Disposition: ADMITTED INPATIENT Condition: STABLE Referrals: CONNOR CROSS MD (PCP) The HEART Score for CP Pts HEART Score for Chest Pain: HEART Score for Chest Pain Response (Comments) Value History Moderately Suspicious 1 ECG Normal 0 Age > 65 2 Risk Factors >3 Risk Factors or Hx CAD 2 Troponin < Normal Limit 0 Total 5 Risk Factors: Risk Factors: DM, Current or recent (<one month) smoker, HTN, HLP, family history of CAD, obesity. Risk Scores: Score 0 - 3: 2.5% MACE over next 6 weeks - Discharge Home Score 4 - 6: 20.3% MACE over next 6 weeks - Admit for Clinical Observation Score 7 - 10: 72.7% MACE over next 6 weeks - Early Invasive Strategies (INOCENTE MEDINA APRN) Attending Signature Attending Signature I have reviewed the PA/SKI PATROLLER's note and plan of care. I was available for consultation as needed during the patient's visit in the emergency department. I agree with the clinical impression, plan, and disposition. (INOCENTE PHELAN DO) Problem Qualifiers Additional Impression: Chest pain Chest pain type: unspecified Qualified Codes: R07.9 - Chest pain, unspecified INOCENTE MEDINA APRN July 19, 2018 10:01 INOCENTE PHELAN DO July 21, 2018 04:58
[2018-07-19 10:04] LABS: BILIRUBIN,URINE NEGATIVE (NEG); CLARITY,URINE CLEAR; COLOR,URINE YELLOW; NITRITE,URINE NEGATIVE (NEG); PROTEIN,URINE NEGATIVE (NEG-TRACE); UROBILINOGEN,URINE 0.2 mg/dL (0.2 mg/dL)
[2018-07-19 10:25] LABS: BASO # 0.1 x10^3/uL (0.0-0.2); BASO % 1 % (0-3); EOS # 0.2 x10^3/uL (0.0-0.7); EOS % 3 % (0-3); HEMATOCRIT 34.5 % (36.0-47.0); HEMOGLOBIN 11.2 g/dL (12.0-15.5); LYMPH # 1.7 x10^3/uL (1.0-4.8); LYMPH % 22 % (24-48); MEAN CORPUSCULAR HEMOGLOBIN 26 pg (25-35); MEAN CORPUSCULAR HGB CONC 33 g/dL (31-37); MEAN CORPUSCULAR VOLUME 80 fL (79-100); MONO # 0.5 x10^3/uL (0.0-1.1); MONO % 7 % (0-9); NEUT # 5.2 x10^3uL (1.8-7.7); NEUT % 67 % (31-73); PLATELET COUNT 199 x10^3/uL (140-400); RED BLOOD COUNT 4.31 x10^6/uL (3.50-5.40); RED CELL DISTRIBUTION WIDTH 17.7 % (11.5-14.5); WHITE BLOOD COUNT 7.8 x10^3/uL (4.0-11.0)
[2018-07-19] MEDS ORDERED: hydrALAZINE 20 MG/ML VIAL. IVP STA (10:25)
[2018-07-19 10:30] LABS: BACTERIA,URINE 0 /HPF (0-FEW); RBC,URINE OCC /HPF (0-2); SQUAMOUS EPITHELIAL CELL,UR OCC /LPF; WBC,URINE OCC /HPF (0-4)
[2018-07-19 10:32] LABS: PROTHROMBIN TIME PATIENT 26.5 SEC (11.7-14.0)
--- NOTE | 2018-07-19 10:38 | RAD ---
Portable chest, 07/19/2018: HISTORY: Chest pain Comparison is made to a study from 11/09/2017. The heart is mildly enlarged. There is calcific plaquing of the aorta. There is minimal linear scarring in the right perihilar region. No pulmonic consolidation is seen. There is no evidence of pleural fluid. The bony structures are demineralized. IMPRESSION: 1. Cardiomegaly and aortic atherosclerosis. 2. No acute cardiopulmonary abnormality is detected. Electronically signed by: Brando Bhardwaj MD (07/19/2018 10:35 AM) [facility]
[2018-07-19] MEDS ORDERED: MORPHINE SULFATE 2 MG/ML VIAL. IV ONE (11:00)
[2018-07-19 11:05] LABS: CALCIUM 9.5 mg/dL (8.5-10.1); GFR 52.8; POTASSIUM 4.3 mmol/L (3.5-5.1)
--- NOTE | 2018-07-19 11:20 | EKG ---
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 Electronically Signed On 07-20-2018 20:05:00 CDT by Zelalem Rose MD
[2018-07-19 11:40] LABS: ALBUMIN/GLOBULIN RATIO 1.1 (1.0-1.7); MAGNESIUM 2.2 mg/dL (1.8-2.4); TOTAL BILIRUBIN 0.5 mg/dL (0.2-1.0); TOTAL PROTEIN 7.6 g/dL (6.4-8.2)
[2018-07-19] MEDS ORDERED: MORPHINE SULFATE 2 MG/ML VIAL. IV PRN (12:15)
[2018-07-19] MEDS ORDERED: ONDANSETRON PF 4 MG/2 ML VIAL. IV PRN (12:15)
[2018-07-19] MEDS ORDERED: ACETAMINOPHEN 325 MG TABLET. PO PRN (12:15)
[2018-07-19] MEDS ORDERED: NITROGLYCERIN SUBLINGUAL 0.4 MG BOTTLE OF 25. SL PRN (12:15)
--- NOTE | 2018-07-19 13:07 | PDOC1 ---
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 Lee at He states she has a leaky valve and some heart failure and A. fib Today she took 3 nitros because she was having some chest pain and didn't initially relieve her pain She called 911 Eminences brought to the ER where her pain is now resolving rates at 9 out of 10 She has associated anxiety Describes as irritating and worse with movement I discussed the case with ER physician were admit patient consult cardiology Past Medical/Surgical History: PMH/PSH: Past Medical History: A-Fib, CHF, Diabetes-Type II, GERD, High Cholesterol, Hypertension Additional Past Medical Histor: diet control diabetes Past Surgical History: Appendectomy, Cholecystectomy, Hysterectomy, Tubal ligation, Other Additional Past Surgical Histo: vericose vein surgery A Allergies: Allergies: Coded Allergies: Sulfa (Sulfonamide Antibiotics) (Verified Allergy, Intermediate, 05/08/16) hydrochlorothiazide (Verified Allergy, Intermediate, 05/08/16) Family History: Family History: CAD Social History: Social Hisoty: She does not drink smoke or take drugs she lives alone Current Medications: Current Medications Current Medications Hydralazine HCl (Apresoline Inj) 10 mg 1X STAT IVP Last administered on 07/19/18at 10:30; Start 07/19/18 at 10:25; Stop 07/19/18 at 10:27; Status DC Morphine Sulfate (Morphine Sulfate) 2 mg 1X ONCE IV Last administered on 07/19/18at 11:13; Start 07/19/18 at 11:00; Stop 07/19/18 at 11:01; Status DC Ondansetron HCl (Zofran) 4 mg PRN Q8HRS PRN IV NAUSEA/VOMITING; Start 07/19/18 at 12:15; Stop 07/20/18 at 12:14 Morphine Sulfate (Morphine Sulfate) 2 mg PRN Q2HR PRN IV PAIN Last administered on 07/19/18at 12:18; Start 07/19/18 at 12:15; Stop 07/20/18 at 12:14 Acetaminophen (Tylenol) 650 mg PRN Q4HRS PRN PO FEVER; Start 07/19/18 at 12:15; Stop 07/20/18 at 12:14 Nitroglycerin (Nitrostat) 0.4 mg PRN Q5MIN PRN SL CHEST PAIN; Start 07/19/18 at 12:15; Stop 07/20/18 at 12:14 ROS: Review of Systems Review of System REVIEW OF SYSTEMS: GENERAL: Denies weakness SKIN: No bruising, hair changes or rashes. EYES: No blurred, double or loss of vision. NOSE AND THROAT: No history of nosebleeds, hoarseness or sore throat. HEART: No history of palpitations, chest pain or shortness of breath on exertion. LUNGS: Denies cough, hemoptysis, wheezing or shortness of breath. GASTROINTESTINAL: Denies changes in appetite, nausea, vomiting, diarrhea or constipation. GENITOURINARY: No history of frequency, urgency, hesitancy or nocturia. NEUROLOGIC: Denies history of numbness, tingling, tremor or weakness. PSYCHIATRIC: No history of panic, anxiety or depression. ENDOCRINE: No history of heat or cold intolerance, polyuria or polydipsia. EXTREMITIES: Denies muscle weakness, joint pain, pain on walking or stiffness. Physical Exam: Vital Signs: Vital Signs Date Time Temp Pulse Resp B/P (MAP) Pulse Ox O2 Delivery O2 Flow Rate FiO2 07/19/18 10:30 60 214/85 07/19/18 09:40 98.1 18 97 Room Air 98.1 Physcial Exam: GEN.: No apparent distress. Alert and oriented. HEENT: Head is normocephalic, atraumatic NECK: Supple, no JVD LUNGS: Clear to auscultation without rhonchi or wheezing HEART: RRR, S1, S2 present. Peripheral pulses intact ABDOMEN: Soft, nontender. Positive bowel sounds no organomegaly EXTREMITIES: Without any cyanosis, clubbing, or edema. Pedal pulses intact NEUROLOGIC: Normal speech, normal tone. A&O x 3 PSYCHIATRIC: Normal affect, normal mood. Stable SKIN: No ulcerations or rashes VASCULAR: Good capillary refill Labs: Labs: Laboratory Tests Test 07/19/18 09:55 07/19/18 10:05 Urine Collection Type Void Urine Color Yellow Urine Clarity Clear Urine pH 6.0 Urine Specific [place] <=1.005 Urine Protein Negative mg/dL (NEG-TRACE) Urine Glucose (UA) Negative mg/dL (NEG) Urine Ketones (Stick) Negative mg/dL (NEG) Urine Blood Negative (NEG) Urine Nitrite Negative (NEG) Urine Bilirubin Negative (NEG) Urine Urobilinogen Dipstick 0.2 mg/dL (0.2 mg/dL) Urine Leukocyte Esterase Negative (NEG) Urine RBC Occ /HPF (0-2) Urine WBC Occ /HPF (0-4) Urine Squamous Epithelial Cells Occ /LPF Urine Bacteria 0 /HPF (0-FEW) White Blood Count 7.8 x10^3/uL (4.0-11.0) Red Blood Count 4.31 x10^6/uL (3.50-5.40) Hemoglobin 11.2 g/dL (12.0-15.5) Hematocrit 34.5 % (36.0-47.0) Mean Corpuscular Volume 80 fL (79-100) Mean Corpuscular Hemoglobin 26 pg (25-35) Mean Corpuscular Hemoglobin Concent 33 g/dL (31-37) Red Cell Distribution Width 17.7 % (11.5-14.5) Platelet Count 199 x10^3/uL (140-400) Neutrophils (%) (Auto) 67 % (31-73) Lymphocytes (%) (Auto) 22 % (24-48) Monocytes (%) (Auto) 7 % (0-9) Eosinophils (%) (Auto) 3 % (0-3) Basophils (%) (Auto) 1 % (0-3) Neutrophils # (Auto) 5.2 x10^3uL (1.8-7.7) Lymphocytes # (Auto) 1.7 x10^3/uL (1.0-4.8) Monocytes # (Auto) 0.5 x10^3/uL (0.0-1.1) Eosinophils # (Auto) 0.2 x10^3/uL (0.0-0.7) Basophils # (Auto) 0.1 x10^3/uL (0.0-0.2) Prothrombin Time 26.5 SEC (11.7-14.0) Prothromb Time International Ratio 2.5 (0.8-1.1) Sodium Level 142 mmol/L (136-145) Potassium Level 4.3 mmol/L (3.5-5.1) Chloride Level 107 mmol/L (98-107) Carbon Dioxide Level 25 mmol/L (21-32) Anion Gap 10 (6-14) Blood Urea Nitrogen 24 mg/dL (7-20) Creatinine 1.0 mg/dL (0.6-1.0) Estimated GFR (Cockcroft-Gault) 52.8 BUN/Creatinine Ratio 24 (6-20) Glucose Level 112 mg/dL (70-99) Calcium Level 9.5 mg/dL (8.5-10.1) Magnesium Level 2.2 mg/dL (1.8-2.4) Total Bilirubin 0.5 mg/dL (0.2-1.0) Aspartate Amino Transf (AST/SGOT) 20 U/L (15-37) Alanine Aminotransferase (ALT/SGPT) 23 U/L (14-59) Alkaline Phosphatase 97 U/L (46-116) Troponin I Quantitative < 0.017 ng/mL (0.000-0.055) VC-Ojz-I-Type Natriuretic Peptide 1364 pg/mL (0-449) Total Protein 7.6 g/dL (6.4-8.2) Albumin 4.0 g/dL (3.4-5.0) Albumin/Globulin Ratio 1.1 (1.0-1.7) Laboratory Tests Test 07/19/18 09:55 07/19/18 10:05 Urine Collection Type Void Urine Color Yellow Urine Clarity Clear Urine pH 6.0 Urine Specific [place] <=1.005 Urine Protein Negative mg/dL (NEG-TRACE) Urine Glucose (UA) Negative mg/dL (NEG) Urine Ketones (Stick) Negative mg/dL (NEG) Urine Blood Negative (NEG) Urine Nitrite Negative (NEG) Urine Bilirubin Negative (NEG) Urine Urobilinogen Dipstick 0.2 mg/dL (0.2 mg/dL) Urine Leukocyte Esterase Negative (NEG) Urine RBC Occ /HPF (0-2) Urine WBC Occ /HPF (0-4) Urine Squamous Epithelial Cells Occ /LPF Urine Bacteria 0 /HPF (0-FEW) White Blood Count 7.8 x10^3/uL (4.0-11.0) Red Blood Count 4.31 x10^6/uL (3.50-5.40) Hemoglobin 11.2 g/dL (12.0-15.5) Hematocrit 34.5 % (36.0-47.0) Mean Corpuscular Volume 80 fL (79-100) Mean Corpuscular Hemoglobin 26 pg (25-35) Mean Corpuscular Hemoglobin Concent 33 g/dL (31-37) Red Cell Distribution Width 17.7 % (11.5-14.5) Platelet Count 199 x10^3/uL (140-400) Neutrophils (%) (Auto) 67 % (31-73) Lymphocytes (%) (Auto) 22 % (24-48) Monocytes (%) (Auto) 7 % (0-9) Eosinophils (%) (Auto) 3 % (0-3) Basophils (%) (Auto) 1 % (0-3) Neutrophils # (Auto) 5.2 x10^3uL (1.8-7.7) Lymphocytes # (Auto) 1.7 x10^3/uL (1.0-4.8) Monocytes # (Auto) 0.5 x10^3/uL (0.0-1.1) Eosinophils # (Auto) 0.2 x10^3/uL (0.0-0.7) Basophils # (Auto) 0.1 x10^3/uL (0.0-0.2) Prothrombin Time 26.5 SEC (11.7-14.0) Prothromb Time International Ratio 2.5 (0.8-1.1) Sodium Level 142 mmol/L (136-145) Potassium Level 4.3 mmol/L (3.5-5.1) Chloride Level 107 mmol/L (98-107) Carbon Dioxide Level 25 mmol/L (21-32) Anion Gap 10 (6-14) Blood Urea Nitrogen 24 mg/dL (7-20) Creatinine 1.0 mg/dL (0.6-1.0) Estimated GFR (Cockcroft-Gault) 52.8 BUN/Creatinine Ratio 24 (6-20) Glucose Level 112 mg/dL (70-99) Calcium Level 9.5 mg/dL (8.5-10.1) Magnesium Level 2.2 mg/dL (1.8-2.4) Total Bilirubin 0.5 mg/dL (0.2-1.0) Aspartate Amino Transf (AST/SGOT) 20 U/L (15-37) Alanine Aminotransferase (ALT/SGPT) 23 U/L (14-59) Alkaline Phosphatase 97 U/L (46-116) Troponin I Quantitative < 0.017 ng/mL (0.000-0.055) LY-Ucm-[id number]-Type Natriuretic Peptide 1364 pg/mL (0-449) Total Protein 7.6 g/dL (6.4-8.2) Albumin 4.0 g/dL (3.4-5.0) Albumin/Globulin Ratio 1.1 (1.0-1.7) Images: Images Chest x-ray without acute changes Assessment/Plan Assessment/Plan Chest pain Plan Cardiac monitoring Consult cardiology Serial enzymes Serial EKGs Daily aspirin DVT prophylaxis Full code Home meds Prognosis guarded Total time 31 minutes JAVI SORIANO III, DO July 19, 2018 13:07
--- NOTE | 2018-07-19 14:44 | PDOC2 ---
LUANN RAMSEY BROWN SOURER 07/19/18 1444: UROLOGY CONSULT Date of Consult Date of Consult DATE: 07/19/18 TIME: 14:35 Reason for Consult Reason for Consult: Frequency, urgency Identification/Chief Complaint Chief Complaint Frequency, urgency Source Source: Chart review, Patient History of Present Illness Reason for Visit: This 76 year old female presented with chest pain, shortness of breath for which she is being admitted and receiving the appropriate workup. She also complained of severe frequency of urination over the past two days. She is going very often, about every 20 to 30 minutes, but is not having any pain or dysuria with urination. She also denies flank or abd pain and the pain in the right side of her chest, along with the shortness of breath she had been having, is gone currently. She has never had any problems with hematuria, kidney stones or difficulty emptying her bladder that she can remember and she has never tried any OAB medications or seen a Urologist for this problem. Current Problem List Problems: (1) Urinary retention Current Medications Current Medications Current Medications Acetaminophen (Tylenol) 650 mg PRN Q4HRS PRN PO FEVER; Start 07/19/18 at 12:15; Stop 07/20/18 at 12:14 Hydralazine HCl (Apresoline Inj) 10 mg 1X STAT IVP Last administered on 07/19/18at 10:30; Start 07/19/18 at 10:25; Stop 07/19/18 at 10:27; Status DC Morphine Sulfate (Morphine Sulfate) 2 mg 1X ONCE IV Last administered on 07/19/18at 11:13; Start 07/19/18 at 11:00; Stop 07/19/18 at 11:01; Status DC Morphine Sulfate (Morphine Sulfate) 2 mg PRN Q2HR PRN IV PAIN Last administered on 07/19/18at 12:18; Start 07/19/18 at 12:15; Stop 07/20/18 at 12:14 Nitroglycerin (Nitrostat) 0.4 mg PRN Q5MIN PRN SL CHEST PAIN; Start 07/19/18 at 12:15; Stop 07/20/18 at 12:14 Ondansetron HCl (Zofran) 4 mg PRN Q8HRS PRN IV NAUSEA/VOMITING; Start 07/19/18 at 12:15; Stop 07/20/18 at 12:14 Allergies Allergies: Coded Allergies: Sulfa (Sulfonamide Antibiotics) (Verified Allergy, Intermediate, 05/08/16) hydrochlorothiazide (Verified Allergy, Intermediate, 05/08/16) chlorthalidone (Verified Allergy, Mild, upset stomach, 07/19/18) amlodipine (Verified Adverse Reaction, Intermediate, 07/19/18) captopril (Verified Adverse Reaction, Mild, itching, 07/19/18) clonidine (Verified Adverse Reaction, Mild, hives, 07/19/18) diltiazem (Verified Adverse Reaction, Mild, Headache, 07/19/18) felodipine (Verified Adverse Reaction, Mild, stomach upset, 07/19/18) latanoprost (Verified Adverse Reaction, Mild, itching, 07/19/18) metoclopramide (Verified Adverse Reaction, Mild, 07/19/18) potassium (Verified Adverse Reaction, Mild, stomach upset, 07/19/18) ROS Review Of Systems: CONSTITUTIONAL: No fever or chills EYES: No recent changes SKIN: No rash or itching CARDIOVASCULAR: + chest pain, ok now RESPIRATORY: + SOB, but ok currently GASTROINTESTINAL: No nausea, vomiting or abdominal pain NEUROLOGICAL: No headaches or weakness ENDOCRINE: No cold or heat intolerance GENITOURINARY: + urgency and frequency of urination MUSCULOSKELETAL: No back pain or joint pain LYMPHATICS: No enlarged lymph nodes PSYCHIATRIC: No anxiety or depression Physical Exam Physical Exam: General: Pleasant, no acute distress, well groomed Eyes: conjunctiva anicteric, eyes full range of motion ENT: moist oral mucosa, normal dentition Neck: Trachea midline, no masses Respiratory: unlabored breathing, not using accessory muscles, Abdomen: nontender, nondistended, no hepatosplenomegaly, no masses : PVR via bladder scanner is 500-510 times three. Skin: no rashes or skin lesions on visualized skin Psych: normal mood, affect. Alert and oriented x 3. Vitals VITALS Vital Signs Date Time Temp Pulse Resp B/P (MAP) Pulse Ox O2 Delivery O2 Flow Rate FiO2 07/19/18 10:30 60 214/85 07/19/18 09:40 98.1 18 97 Room Air 98.1 Labs Labs Laboratory Tests Test 07/19/18 09:55 07/19/18 10:05 Urine Collection Type Void Urine Color Yellow Urine Clarity Clear Urine pH 6.0 Urine Specific [place] <=1.005 Urine Protein Negative mg/dL (NEG-TRACE) Urine Glucose (UA) Negative mg/dL (NEG) Urine Ketones (Stick) Negative mg/dL (NEG) Urine Blood Negative (NEG) Urine Nitrite Negative (NEG) Urine Bilirubin Negative (NEG) Urine Urobilinogen Dipstick 0.2 mg/dL (0.2 mg/dL) Urine Leukocyte Esterase Negative (NEG) Urine RBC Occ /HPF (0-2) Urine WBC Occ /HPF (0-4) Urine Squamous Epithelial Cells Occ /LPF Urine Bacteria 0 /HPF (0-FEW) White Blood Count 7.8 x10^3/uL (4.0-11.0) Red Blood Count 4.31 x10^6/uL (3.50-5.40) Hemoglobin 11.2 g/dL (12.0-15.5) Hematocrit 34.5 % (36.0-47.0) Mean Corpuscular Volume 80 fL (79-100) Mean Corpuscular Hemoglobin 26 pg (25-35) Mean Corpuscular Hemoglobin Concent 33 g/dL (31-37) Red Cell Distribution Width 17.7 % (11.5-14.5) Platelet Count 199 x10^3/uL (140-400) Neutrophils (%) (Auto) 67 % (31-73) Lymphocytes (%) (Auto) 22 % (24-48) Monocytes (%) (Auto) 7 % (0-9) Eosinophils (%) (Auto) 3 % (0-3) Basophils (%) (Auto) 1 % (0-3) Neutrophils # (Auto) 5.2 x10^3uL (1.8-7.7) Lymphocytes # (Auto) 1.7 x10^3/uL (1.0-4.8) Monocytes # (Auto) 0.5 x10^3/uL (0.0-1.1) Eosinophils # (Auto) 0.2 x10^3/uL (0.0-0.7) Basophils # (Auto) 0.1 x10^3/uL (0.0-0.2) Prothrombin Time 26.5 SEC (11.7-14.0) Prothromb Time International Ratio 2.5 (0.8-1.1) Sodium Level 142 mmol/L (136-145) Potassium Level 4.3 mmol/L (3.5-5.1) Chloride Level 107 mmol/L (98-107) Carbon Dioxide Level 25 mmol/L (21-32) Anion Gap 10 (6-14) Blood Urea Nitrogen 24 mg/dL (7-20) Creatinine 1.0 mg/dL (0.6-1.0) Estimated GFR (Cockcroft-Gault) 52.8 BUN/Creatinine Ratio 24 (6-20) Glucose Level 112 mg/dL (70-99) Calcium Level 9.5 mg/dL (8.5-10.1) Magnesium Level 2.2 mg/dL (1.8-2.4) Total Bilirubin 0.5 mg/dL (0.2-1.0) Aspartate Amino Transf (AST/SGOT) 20 U/L (15-37) Alanine Aminotransferase (ALT/SGPT) 23 U/L (14-59) Alkaline Phosphatase 97 U/L (46-116) Troponin I Quantitative < 0.017 ng/mL (0.000-0.055) MH-[id number]-C-Type Natriuretic Peptide 1364 pg/mL (0-449) Total Protein 7.6 g/dL (6.4-8.2) Albumin 4.0 g/dL (3.4-5.0) Albumin/Globulin Ratio 1.1 (1.0-1.7) Laboratory Tests Test 07/19/18 09:55 07/19/18 10:05 Urine Collection Type Void Urine Color Yellow Urine Clarity Clear Urine pH 6.0 Urine Specific [place] <=1.005 Urine Protein Negative mg/dL (NEG-TRACE) Urine Glucose (UA) Negative mg/dL (NEG) Urine Ketones (Stick) Negative mg/dL (NEG) Urine Blood Negative (NEG) Urine Nitrite Negative (NEG) Urine Bilirubin Negative (NEG) Urine Urobilinogen Dipstick 0.2 mg/dL (0.2 mg/dL) Urine Leukocyte Esterase Negative (NEG) Urine RBC Occ /HPF (0-2) Urine WBC Occ /HPF (0-4) Urine Squamous Epithelial Cells Occ /LPF Urine Bacteria 0 /HPF (0-FEW) White Blood Count 7.8 x10^3/uL (4.0-11.0) Red Blood Count 4.31 x10^6/uL (3.50-5.40) Hemoglobin 11.2 g/dL (12.0-15.5) Hematocrit 34.5 % (36.0-47.0) Mean Corpuscular Volume 80 fL (79-100) Mean Corpuscular Hemoglobin 26 pg (25-35) Mean Corpuscular Hemoglobin Concent 33 g/dL (31-37) Red Cell Distribution Width 17.7 % (11.5-14.5) Platelet Count 199 x10^3/uL (140-400) Neutrophils (%) (Auto) 67 % (31-73) Lymphocytes (%) (Auto) 22 % (24-48) Monocytes (%) (Auto) 7 % (0-9) Eosinophils (%) (Auto) 3 % (0-3) Basophils (%) (Auto) 1 % (0-3) Neutrophils # (Auto) 5.2 x10^3uL (1.8-7.7) Lymphocytes # (Auto) 1.7 x10^3/uL (1.0-4.8) Monocytes # (Auto) 0.5 x10^3/uL (0.0-1.1) Eosinophils # (Auto) 0.2 x10^3/uL (0.0-0.7) Basophils # (Auto) 0.1 x10^3/uL (0.0-0.2) Prothrombin Time 26.5 SEC (11.7-14.0) Prothromb Time International Ratio 2.5 (0.8-1.1) Sodium Level 142 mmol/L (136-145) Potassium Level 4.3 mmol/L (3.5-5.1) Chloride Level 107 mmol/L (98-107) Carbon Dioxide Level 25 mmol/L (21-32) Anion Gap 10 (6-14) Blood Urea Nitrogen 24 mg/dL (7-20) Creatinine 1.0 mg/dL (0.6-1.0) Estimated GFR (Cockcroft-Gault) 52.8 BUN/Creatinine Ratio 24 (6-20) Glucose Level 112 mg/dL (70-99) Calcium Level 9.5 mg/dL (8.5-10.1) Magnesium Level 2.2 mg/dL (1.8-2.4) Total Bilirubin 0.5 mg/dL (0.2-1.0) Aspartate Amino Transf (AST/SGOT) 20 U/L (15-37) Alanine Aminotransferase (ALT/SGPT) 23 U/L (14-59) Alkaline Phosphatase 97 U/L (46-116) Troponin I Quantitative < 0.017 ng/mL (0.000-0.055) WW-Yac-S-Type Natriuretic Peptide 1364 pg/mL (0-449) Total Protein 7.6 g/dL (6.4-8.2) Albumin 4.0 g/dL (3.4-5.0) Albumin/Globulin Ratio 1.1 (1.0-1.7) Assessment/Plan Assessment/Plan : PVR via bladder scanner is 500-510 times three = place indwelling Li catheter and record initial amount out. Voiding trial in a couple of days. Recommend movement, a good bowel program P[employer] MANAGER 1.0, BUN 24, WBC 7.8 UA= -Nitrite, - leukocytes, - blood, no bacteria (does not indicate UTI) Dr. Hernandez to round on patient over the weekend MARISOL HERNANDEZ MD 07/20/18 1555: UROLOGY CONSULT Assessment/Plan Assessment/Plan agree w above. overflow UI. VT tomorrow. recommend bowel regimen. LUANN RAMSEY APRN July 19, 2018 14:44 MARISOL HERNANDEZ MD July 20, 2018 15:55
[2018-07-19] MEDS ORDERED: WARFARIN 5 MG TABLET. PO SCH (16:00)
[2018-07-19] MEDS ORDERED: TELM80TA PO ×2 (17:49)
[2018-07-19] MEDS ORDERED: CARV25TA PO (17:49)
[2018-07-19] MEDS ORDERED: WARF2.5T71 PO (17:49)
[2018-07-19] MEDS ORDERED: ATOR20TA PO (17:49)
[2018-07-19] MEDS ORDERED: TRAV5DRO EACHEYE (17:49)
[2018-07-19] MEDS ORDERED: FURO20TA3 PO (17:49)
[2018-07-19] MEDS ORDERED: ASPI-612 PO (17:49)
[2018-07-19] MEDS ORDERED: PANT20TA2 PO (17:49)
[2018-07-19] MEDS ORDERED: WARF-31 PO (17:49)
[2018-07-19] MEDS ORDERED: HYDR-2869 PO (17:49)
[2018-07-19] MEDS ORDERED: HYDR-2868 PO (17:49)
--- NOTE | 2018-07-19 17:55 | PDOC2 ---
CONSULT Date of Consult Date of Consult DATE: 07/19/18 TIME: 17:44 Reason for Consult Reason for Consult: Chest pain, hypertension, atrial fibrillation Referring Physician Referring Physician: Dr. Soni Identification/Chief Complaint Chief Complaint The patient is a pleasant 83-year-old female with a history of hypertension, heart failure and atrial fibrillation who developed chest pain earlier today. She was brought to the emergency room at her workup has been significant for troponin initially of 0.017, mildly elevated BNP of 1364 and an INR of 2.5. Her EKG shows an atrial fibrillation with no acute ischemic changes. Chest x-ray shows cardiomegaly but no acute processes. She has also had episodes of increased frequency of urination and has been seen by the urology service. After treatment the patient is feeling better. Her chest pain has largely resolved. Her rate is under good control. She states she has been treated with Coumadin and Coreg for atrial fibrillation. She is usually followed at . Source Source: Chart review, Patient History of Present Illness Reason for Visit: As above. Past Medical History Cardiovascular: AFIB, CHF, HTN, Hyperlipidemia GI: GERD Musculoskeletal: low back pain Endocrine: Diabetes Past Surgical History Past Surgical History: Appendectomy, Cholecystectomy, Tubal Ligation, Hysterectomy, Other (varicose vein procedures.) Family History Family History: Hypertension Social History No ALCOHOL: none Current Problem List Problem List Problems Medical Problems: (1) Chest pain Status: Acute (2) Hypertensive urgency Status: Acute (3) Rectal pain Status: Acute Current Medications Current Medications Current Medications Hydralazine HCl (Apresoline Inj) 10 mg 1X STAT IVP Last administered on 07/19/18at 10:30; Start 07/19/18 at 10:25; Stop 07/19/18 at 10:27; Status DC Morphine Sulfate (Morphine Sulfate) 2 mg 1X ONCE IV Last administered on 07/19/18at 11:13; Start 07/19/18 at 11:00; Stop 07/19/18 at 11:01; Status DC Ondansetron HCl (Zofran) 4 mg PRN Q8HRS PRN IV NAUSEA/VOMITING; Start 07/19/18 at 12:15; Stop 07/20/18 at 12:14 Morphine Sulfate (Morphine Sulfate) 2 mg PRN Q2HR PRN IV PAIN Last administered on 07/19/18at 12:18; Start 07/19/18 at 12:15; Stop 07/20/18 at 12:14 Acetaminophen (Tylenol) 650 mg PRN Q4HRS PRN PO FEVER; Start 07/19/18 at 12:15; Stop 07/20/18 at 12:14 Nitroglycerin (Nitrostat) 0.4 mg PRN Q5MIN PRN SL CHEST PAIN; Start 07/19/18 at 12:15; Stop 07/20/18 at 12:14 Furosemide (Lasix) 20 mg DAILY PO ; Start 07/20/18 at 09:00; Status UNV Alprazolam (Xanax) 0.25 mg HS PRN PO ANXIETY / AGITATION; Start 07/19/18 at 20:00; Status UNV Hydralazine HCl (Apresoline) 50 mg TID PO ; Start 07/19/18 at 21:00; Status UNV Hydralazine HCl (Apresoline) 25 mg DAILY16 PO ; Start 07/20/18 at 17:00; Status UNV Carvedilol (Coreg) 12.5 mg BIDWMEALS PO ; Start 07/19/18 at 15:00; Status UNV Pantoprazole Sodium (Protonix) 40 mg DAILYAC PO ; Start 07/20/18 at 07:30; Status UNV Atorvastatin Calcium (Lipitor) 20 mg QHS PO ; Start 07/19/18 at 21:00; Status UNV Warfarin Sodium (Coumadin Per Physician) 1 each PRN DAILY PRN MC SEE COMMENTS; Start 07/19/18 at 17:15; Status UNV Allergies Allergies: Coded Allergies: Sulfa (Sulfonamide Antibiotics) (Verified Allergy, Intermediate, 05/08/16) hydrochlorothiazide (Verified Allergy, Intermediate, 05/08/16) ROS Respiratory: YES: SOB with excertion Cardiovascular: yes Chest Pain, yes Palpitations Physical Exam General: mild distress HEENT: Atraumatic Lungs: Other (mildly decreased breath sounds.) Heart: Other (irregularly irregular) Abdomen: Normal bowel sounds Vitals VITALS Vital Signs Date Time Temp Pulse Resp B/P (MAP) Pulse Ox O2 Delivery O2 Flow Rate FiO2 07/19/18 10:30 60 214/85 07/19/18 09:40 98.1 18 97 Room Air 98.1 Labs Labs Laboratory Tests Test 5/24/19 09:55 07/19/18 10:05 Urine Collection Type Void Urine Color Yellow Urine Clarity Clear Urine pH 6.0 Urine Specific [place] <=1.005 Urine Protein Negative mg/dL (NEG-TRACE) Urine Glucose (UA) Negative mg/dL (NEG) Urine Ketones (Stick) Negative mg/dL (NEG) Urine Blood Negative (NEG) Urine Nitrite Negative (NEG) Urine Bilirubin Negative (NEG) Urine Urobilinogen Dipstick 0.2 mg/dL (0.2 mg/dL) Urine Leukocyte Esterase Negative (NEG) Urine RBC Occ /HPF (0-2) Urine WBC Occ /HPF (0-4) Urine Squamous Epithelial Cells Occ /LPF Urine Bacteria 0 /HPF (0-FEW) White Blood Count 7.8 x10^3/uL (4.0-11.0) Red Blood Count 4.31 x10^6/uL (3.50-5.40) Hemoglobin 11.2 g/dL (12.0-15.5) Hematocrit 34.5 % (36.0-47.0) Mean Corpuscular Volume 80 fL (79-100) Mean Corpuscular Hemoglobin 26 pg (25-35) Mean Corpuscular Hemoglobin Concent 33 g/dL (31-37) Red Cell Distribution Width 17.7 % (11.5-14.5) Platelet Count 199 x10^3/uL (140-400) Neutrophils (%) (Auto) 67 % (31-73) Lymphocytes (%) (Auto) 22 % (24-48) Monocytes (%) (Auto) 7 % (0-9) Eosinophils (%) (Auto) 3 % (0-3) Basophils (%) (Auto) 1 % (0-3) Neutrophils # (Auto) 5.2 x10^3uL (1.8-7.7) Lymphocytes # (Auto) 1.7 x10^3/uL (1.0-4.8) Monocytes # (Auto) 0.5 x10^3/uL (0.0-1.1) Eosinophils # (Auto) 0.2 x10^3/uL (0.0-0.7) Basophils # (Auto) 0.1 x10^3/uL (0.0-0.2) Prothrombin Time 26.5 SEC (11.7-14.0) Prothromb Time International Ratio 2.5 (0.8-1.1) Sodium Level 142 mmol/L (136-145) Potassium Level 4.3 mmol/L (3.5-5.1) Chloride Level 107 mmol/L (98-107) Carbon Dioxide Level 25 mmol/L (21-32) Anion Gap 10 (6-14) Blood Urea Nitrogen 24 mg/dL (7-20) Creatinine 1.0 mg/dL (0.6-1.0) Estimated GFR (Cockcroft-Gault) 52.8 BUN/Creatinine Ratio 24 (6-20) Glucose Level 112 mg/dL (70-99) Calcium Level 9.5 mg/dL (8.5-10.1) Magnesium Level 2.2 mg/dL (1.8-2.4) Total Bilirubin 0.5 mg/dL (0.2-1.0) Aspartate Amino Transf (AST/SGOT) 20 U/L (15-37) Alanine Aminotransferase (ALT/SGPT) 23 U/L (14-59) Alkaline Phosphatase 97 U/L (46-116) Troponin I Quantitative < 0.017 ng/mL (0.000-0.055) IR-Myy-F-Type Natriuretic Peptide 1364 pg/mL (0-449) Total Protein 7.6 g/dL (6.4-8.2) Albumin 4.0 g/dL (3.4-5.0) Albumin/Globulin Ratio 1.1 (1.0-1.7) Laboratory Tests Test 07/19/18 09:55 07/19/18 10:05 Urine Collection Type Void Urine Color Yellow Urine Clarity Clear Urine pH 6.0 Urine Specific [place] <=1.005 Urine Protein Negative mg/dL (NEG-TRACE) Urine Glucose (UA) Negative mg/dL (NEG) Urine Ketones (Stick) Negative mg/dL (NEG) Urine Blood Negative (NEG) Urine Nitrite Negative (NEG) Urine Bilirubin Negative (NEG) Urine Urobilinogen Dipstick 0.2 mg/dL (0.2 mg/dL) Urine Leukocyte Esterase Negative (NEG) Urine RBC Occ /HPF (0-2) Urine WBC Occ /HPF (0-4) Urine Squamous Epithelial Cells Occ /LPF Urine Bacteria 0 /HPF (0-FEW) White Blood Count 7.8 x10^3/uL (4.0-11.0) Red Blood Count 4.31 x10^6/uL (3.50-5.40) Hemoglobin 11.2 g/dL (12.0-15.5) Hematocrit 34.5 % (36.0-47.0) Mean Corpuscular Volume 80 fL (79-100) Mean Corpuscular Hemoglobin 26 pg (25-35) Mean Corpuscular Hemoglobin Concent 33 g/dL (31-37) Red Cell Distribution Width 17.7 % (11.5-14.5) Platelet Count 199 x10^3/uL (140-400) Neutrophils (%) (Auto) 67 % (31-73) Lymphocytes (%) (Auto) 22 % (24-48) Monocytes (%) (Auto) 7 % (0-9) Eosinophils (%) (Auto) 3 % (0-3) Basophils (%) (Auto) 1 % (0-3) Neutrophils # (Auto) 5.2 x10^3uL (1.8-7.7) Lymphocytes # (Auto) 1.7 x10^3/uL (1.0-4.8) Monocytes # (Auto) 0.5 x10^3/uL (0.0-1.1) Eosinophils # (Auto) 0.2 x10^3/uL (0.0-0.7) Basophils # (Auto) 0.1 x10^3/uL (0.0-0.2) Prothrombin Time 26.5 SEC (11.7-14.0) Prothromb Time International Ratio 2.5 (0.8-1.1) Sodium Level 142 mmol/L (136-145) Potassium Level 4.3 mmol/L (3.5-5.1) Chloride Level 107 mmol/L (98-107) Carbon Dioxide Level 25 mmol/L (21-32) Anion Gap 10 (6-14) Blood Urea Nitrogen 24 mg/dL (7-20) Creatinine 1.0 mg/dL (0.6-1.0) Estimated GFR (Cockcroft-Gault) 52.8 BUN/Creatinine Ratio 24 (6-20) Glucose Level 112 mg/dL (70-99) Calcium Level 9.5 mg/dL (8.5-10.1) Magnesium Level 2.2 mg/dL (1.8-2.4) Total Bilirubin 0.5 mg/dL (0.2-1.0) Aspartate Amino Transf (AST/SGOT) 20 U/L (15-37) Alanine Aminotransferase (ALT/SGPT) 23 U/L (14-59) Alkaline Phosphatase 97 U/L (46-116) Troponin I Quantitative < 0.017 ng/mL (0.000-0.055) AR-Rvy-R-Type Natriuretic Peptide 1364 pg/mL (0-449) Total Protein 7.6 g/dL (6.4-8.2) Albumin 4.0 g/dL (3.4-5.0) Albumin/Globulin Ratio 1.1 (1.0-1.7) Images Images Chest x-ray shows cardiomegaly but no acute processes. Assessment/Plan Assessment/Plan 1. Chest pain. Patient's chest pain has significantly improved. Initial troponin is normal. EKG shows no acute ischemic changes. We'll rule out for myocardial infarction. Control blood pressure. Check echocardiogram. We'll also attempt to obtain old records [facility]. 2. Atrial fibrillation. Rate controlled. On Coumadin with an INR of 2.5. Will resume home medications. 3. Accelerated hypertension. Significantly elevated blood pressure on admission. Home medications are being resumed. We'll monitor blood pressure and adjust medications as needed. 4. Mild heart failure. BNP of 1364. We'll continue medical treatment. Echocardiogram. 5. Hyperlipidemia. We'll continue present medications and check a lipid panel. 6. Diabetes mellitus. As per the primary service. Thank you for allowing us to participate in the care of your patient. EUNICE SANDS MD July 19, 2018 17:55
[2018-07-19] MEDS: CARVEDILOL 12.5 MG TABLET. PO SCH ×2 (18:29→22:00)
[2018-07-19 19:12] VITALS: BP 142/63
[2018-07-19] MEDS ORDERED: ALPRAZolam 0.25 MG TABLET PO PRN (20:00)
[2018-07-19] MEDS: LOSARTAN POTASSIUM 50 MG TABLET. PO SCH (21:30)
[2018-07-19 22:30] VITALS: BP 106/44
[2018-07-19] MEDS ORDERED: LATANOPROST 0.005% OPHTH SOLUTION 2.5ML BOTTLE. OU SCH (22:30)
[2018-07-19] MEDS: TRAVOPROST 0.004% OU SCH (23:19)
[2018-07-20] VITALS (7 sets, daily range): BP systolic 118–159; BP diastolic 43–63
[2018-07-20] MEDS: ATORVASTATIN CALCIUM 20 MG TABLET PO SCH ×2 (03:46→21:01)
[2018-07-20] MEDS: PANTOPRAZOLE 40 MG TABLET.DR. PO SCH (06:44)
[2018-07-20] MEDS: CARVEDILOL 12.5 MG TABLET. PO SCH ×3 (08:54→21:03)
[2018-07-20] MEDS: FUROSEMIDE 20 MG TABLET PO SCH (08:54)
[2018-07-20] MEDS ORDERED: TELMISARTAN PO SCH (09:00)
[2018-07-20] MEDS ORDERED: PHENYLEPHRINE SUPP.RECT. PR PRN (10:30)
--- NOTE | 2018-07-20 10:30 | PDOC ---
PROGRESS NOTES Chief Complaint Chief Complaint Assessment/Plan 1. Chest pain. attempt to obtain old records [facility]. 2. Atrial fibrillation. Rate controlled. On Coumadin with therapeutic INR 3. Accelerated hypertension. 4. Mild heart failure. BNP of 1364. . Echocardiogram. 5. Hyperlipidemia. 6. Diabetes mellitus. \ 7, Urinary retention and incontinence - rivas new - urology consulted History of Present Illness History of Present Illness She has no complaints Echocardiogram done-read is still pending INR is therapeutic Follows with cardiology group [facility] Appreciate/note of cardiology reviewed has an indwelling Rivas catheter Requests some H cream Otherwsie no CP Plan: H cream Await [facility] records Follow-up echo results Coumadin to continue Maintain Rivas catheter, might need voiding trial as outpatient per urology note Vitals Vitals Vital Signs Date Time Temp Pulse Resp B/P (MAP) Pulse Ox O2 Delivery O2 Flow Rate FiO2 07/20/18 08:54 54 118/48 07/20/18 06:40 18 07/20/18 03:21 97.9 94 Room Air 97.9 Physical Exam General: Alert, Oriented X3, Cooperative, mild distress Heart: Regular rate, Normal S1, Normal S2, Other (irregularly irregular) Lungs: Clear Abdomen: Normal bowel sounds, Soft Extremities: No clubbing, No cyanosis Skin: No rashes, No breakdown Labs LABS Laboratory Tests Test 07/19/18 18:45 Troponin I Quantitative < 0.017 ng/mL (0.000-0.055) Review of Systems Review of Systems requests hemorrhoidal cream otherwise rest of ROS 14 point negative Assessment and Plan Assessmemt and Plan Problems Medical Problems: (1) Chest pain Status: Acute (2) Hypertensive urgency Status: Acute (3) Rectal pain Status: Acute Comment Review of Relevant I have reviewed the following items agnes (where applicable) has been applied. Labs Laboratory Tests Test 07/19/18 09:55 07/19/18 10:05 07/19/18 18:45 Urine Collection Type Void Urine Color Yellow Urine Clarity Clear Urine pH 6.0 Urine Specific [place] <=1.005 Urine Protein Negative mg/dL (NEG-TRACE) Urine Glucose (UA) Negative mg/dL (NEG) Urine Ketones (Stick) Negative mg/dL (NEG) Urine Blood Negative (NEG) Urine Nitrite Negative (NEG) Urine Bilirubin Negative (NEG) Urine Urobilinogen Dipstick 0.2 mg/dL (0.2 mg/dL) Urine Leukocyte Esterase Negative (NEG) Urine RBC Occ /HPF (0-2) Urine WBC Occ /HPF (0-4) Urine Squamous Epithelial Cells Occ /LPF Urine Bacteria 0 /HPF (0-FEW) White Blood Count 7.8 x10^3/uL (4.0-11.0) Red Blood Count 4.31 x10^6/uL (3.50-5.40) Hemoglobin 11.2 g/dL (12.0-15.5) Hematocrit 34.5 % (36.0-47.0) Mean Corpuscular Volume 80 fL (79-100) Mean Corpuscular Hemoglobin 26 pg (25-35) Mean Corpuscular Hemoglobin Concent 33 g/dL (31-37) Red Cell Distribution Width 17.7 % (11.5-14.5) Platelet Count 199 x10^3/uL (140-400) Neutrophils (%) (Auto) 67 % (31-73) Lymphocytes (%) (Auto) 22 % (24-48) Monocytes (%) (Auto) 7 % (0-9) Eosinophils (%) (Auto) 3 % (0-3) Basophils (%) (Auto) 1 % (0-3) Neutrophils # (Auto) 5.2 x10^3uL (1.8-7.7) Lymphocytes # (Auto) 1.7 x10^3/uL (1.0-4.8) Monocytes # (Auto) 0.5 x10^3/uL (0.0-1.1) Eosinophils # (Auto) 0.2 x10^3/uL (0.0-0.7) Basophils # (Auto) 0.1 x10^3/uL (0.0-0.2) Prothrombin Time 26.5 SEC (11.7-14.0) Prothromb Time International Ratio 2.5 (0.8-1.1) Sodium Level 142 mmol/L (136-145) Potassium Level 4.3 mmol/L (3.5-5.1) Chloride Level 107 mmol/L (98-107) Carbon Dioxide Level 25 mmol/L (21-32) Anion Gap 10 (6-14) Blood Urea Nitrogen 24 mg/dL (7-20) Creatinine 1.0 mg/dL (0.6-1.0) Estimated GFR (Cockcroft-Gault) 52.8 BUN/Creatinine Ratio 24 (6-20) Glucose Level 112 mg/dL (70-99) Calcium Level 9.5 mg/dL (8.5-10.1) Magnesium Level 2.2 mg/dL (1.8-2.4) Total Bilirubin 0.5 mg/dL (0.2-1.0) Aspartate Amino Transf (AST/SGOT) 20 U/L (15-37) Alanine Aminotransferase (ALT/SGPT) 23 U/L (14-59) Alkaline Phosphatase 97 U/L (46-116) Troponin I Quantitative < 0.017 ng/mL (0.000-0.055) < 0.017 ng/mL (0.000-0.055) OK-Mqj-Z-Type Natriuretic Peptide 1364 pg/mL (0-449) Total Protein 7.6 g/dL (6.4-8.2) Albumin 4.0 g/dL (3.4-5.0) Albumin/Globulin Ratio 1.1 (1.0-1.7) Laboratory Tests Test 07/19/18 18:45 Troponin I Quantitative < 0.017 ng/mL (0.000-0.055) Medications Current Medications Hydralazine HCl (Apresoline Inj) 10 mg 1X STAT IVP Last administered on 07/19/18at 10:30; Start 07/19/18 at 10:25; Stop 07/19/18 at 10:27; Status DC Morphine Sulfate (Morphine Sulfate) 2 mg 1X ONCE IV Last administered on 07/19/18at 11:13; Start 07/19/18 at 11:00; Stop 07/19/18 at 11:01; Status DC Ondansetron HCl (Zofran) 4 mg PRN Q8HRS PRN IV NAUSEA/VOMITING Last administered on 07/19/18at 18:04; Start 07/19/18 at 12:15; Stop 07/20/18 at 12:14 Morphine Sulfate (Morphine Sulfate) 2 mg PRN Q2HR PRN IV PAIN Last administered on 07/19/18at 12:18; Start 07/19/18 at 12:15; Stop 07/20/18 at 12:14 Acetaminophen (Tylenol) 650 mg PRN Q4HRS PRN PO FEVER; Start 07/19/18 at 12:15; Stop 07/20/18 at 12:14 Nitroglycerin (Nitrostat) 0.4 mg PRN Q5MIN PRN SL CHEST PAIN; Start 07/19/18 at 12:15; Stop 07/20/18 at 12:14 Furosemide (Lasix) 20 mg DAILY PO Last administered on 07/20/18at 08:54; Start 07/20/18 at 09:00 Alprazolam (Xanax) 0.25 mg PRN QHS PRN PO ANXIETY / AGITATION; Start 07/19/18 at 20:00 Hydralazine HCl (Apresoline) 50 mg TID@0300,0700,1200 PO ; Start 07/19/18 at 21:00 Hydralazine HCl (Apresoline) 25 mg DAILY16 PO ; Start 07/20/18 at 17:00 Carvedilol (Coreg) 12.5 mg TID@0700,1500,2200 PO Last administered on 07/20/18at 08:54; Start 07/19/18 at 15:00 Pantoprazole Sodium (Protonix) 40 mg DAILYAC PO Last administered on 07/20/18at 06:44; Start 07/20/18 at 07:30 Atorvastatin Calcium (Lipitor) 20 mg QHS PO Last administered on 07/20/18at 03:46; Start 07/20/18 at 03:00 Warfarin Sodium (Coumadin Per Physician) 1 each PRN DAILY PRN MC SEE COMMENTS; Start 07/19/18 at 17:15 Warfarin Sodium (Coumadin) 5 mg MoTuWeFr PO Last administered on 07/19/18at 18:25; Start 07/19/18 at 16:00 Warfarin Sodium (Coumadin) 2.5 mg SuThSa PO ; Start 07/20/18 at 16:00 Losartan Potassium (Cozaar) 100 mg QHS PO ; Start 07/19/18 at 21:30 Non-Formulary Medication (Telmisartan (Micardis)) 1 tab DAILY PO ; Start 07/20/18 at 09:00; Status UNV Latanoprost (Xalatan) 1 drop QHS OU ; Start 07/19/18 at 22:30; Status Cancel Non-Formulary Medication 1 ea QHS OU Last administered on 07/19/18at 23:19; Start 07/19/18 at 23:30 Active Scripts Active Reported Warfarin Sodium 5 Mg Tablet 5 Mg PO M, T, W, F Warfarin Sodium 2.5 Mg Tablet 2.5 Mg PO SUN, THUR, SAT Lipitor (Atorvastatin Calcium) 20 Mg Tablet 20 Mg PO DAILY Protonix (Pantoprazole Sodium) 20 Mg Tablet.dr 40 Mg PO DAILY07 Micardis (Telmisartan) 80 Mg Tablet 1 Tab PO 2100 PRN Coreg (Carvedilol) 25 Mg Tablet 12.5 Mg PO BIDWMEALS Hydralazine Hcl 25 Mg Tablet 1 Tab PO 1700 PRN Hydralazine Hcl 50 Mg Tablet 1 Tab PO TID PRN Aspirin Ec (Aspirin) 81 Mg Tablet.dr 1 Tab PO DAILY Furosemide 20 Mg Tablet 1 Tab PO DAILY Travatan Z (Travoprost) 5 Ml Drops 1 Drop EACHEYE QHS Micardis (Telmisartan) 80 Mg Tablet 1 Tab PO DAILY Vitals/I & O Vital Sign - Last 24 Hours 07/19/18 07/19/18 07/19/18 07/19/18 10:30 10:30 11:00 11:30 Pulse 60 64 69 70 Resp 18 18 18 B/P (MAP) 214/85 210/85 (126) 208/86 (126) 198/88 (124) Pulse Ox 97 98 98 O2 Delivery Room Air Room Air Room Air 07/19/18 07/19/18 07/19/18 07/19/18 11:43 12:00 12:30 12:48 Pulse 70 74 Resp 18 16 B/P (MAP) 190/82 (118) 194/81 (118) Pulse Ox 97 97 O2 Delivery Room Air Room Air Room Air Room Air 07/19/18 07/19/18 07/19/18 07/19/18 13:30 18:29 19:12 19:45 Temp 98.4 98.4 Pulse 70 76 79 Resp 16 18 B/P (MAP) 176/76 (109) 154/58 142/63 (89) Pulse Ox 97 95 O2 Delivery Room Air Room Air Room Air 07/19/18 07/19/18 07/19/18 07/20/18 21:30 22:00 22:30 03:00 Pulse 64 64 64 52 Resp 18 B/P (MAP) 106/44 106/44 106/44 (64) 120/48 Pulse Ox 95 O2 Delivery Room Air 07/20/18 07/20/18 07/20/18 07/20/18 03:21 06:40 07:00 08:54 Temp 97.9 97.9 Pulse 52 54 54 54 Resp 18 18 B/P (MAP) 120/48 (72) 118/48 (71) 118/48 118/48 Pulse Ox 94 O2 Delivery Room Air Intake and Output 07/19/18 07/19/18 07/20/18 15:00 23:00 07:00 Intake Total 700 ml Output Total 400 ml Balance 700 ml -400 ml LANEY IRIZARRY MD July 20, 2018 10:30
[2018-07-20] MEDS ORDERED: WARFARIN 2.5 MG TABLET. PO SCH (16:00)
--- NOTE | 2018-07-20 16:50 | PDOC ---
Progress Note Subjective Subjective no acute events. no gh, no dysuria w cath. 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 OVerflow incontinence. Plan Plan of Care VT in am. If not voided >6h, then pvr and if >350ml, replace cath. If dc home w cath herminio ak next week. MARISOL ERICKSON MD July 20, 2018 16:50
--- NOTE | 2018-07-20 16:57 | NUR ---
Per Dr Hernandez, remove rivas cath sunday 05:00, start voiding trial for pt to see if she can urinate. If pt has not voided in 6 hrs, bladder scan needed. if retaining more then 350mls, may need straight cath. Ck Ngo RN
[2018-07-20] MEDS ORDERED: hydrALAZINE 25 MG TABLET PO SCH (17:00)
--- NOTE | 2018-07-20 20:09 | PDOC ---
CARDIOLOGY PROGRESS NOTE SUBJECTIVE: Denies any chest pain currently. No syncope. No palpitations. OBJECTIVE: Vital SIgns: Vital Signs Date Time Temp Pulse Resp B/P (MAP) Pulse Ox O2 Delivery O2 Flow Rate FiO2 07/20/18 17:39 82 138/54 07/20/18 15:35 97.8 18 97 Room Air 97.8 I & O Intake and Output 07/20/18 06:59 Intake Total 700 ml Output Total 400 ml Balance 300 ml Intake Oral 700 ml Output Urine Total 400 ml Objective: Gen: A/O x 3. NAD CVS: Irr irr. No m/r/g/ PULMP CTAB ABD: Soft, NT EXT: No edema. No focal neurologic deficits. CURRENT MEDICATIONS: Current Medications Medications (Trade) Dose Ordered Sig/Isaura Start Time Stop Time Status Last Admin Dose Admin Acetaminophen (Tylenol) 650 mg PRN Q4HRS PRN 07/19/18 12:15 07/20/18 12:14 DC Alprazolam (Xanax) 0.25 mg PRN QHS PRN 07/19/18 20:00 Atorvastatin Calcium (Lipitor) 20 mg QHS 07/20/18 03:00 07/20/18 03:46 20 MG Carvedilol (Coreg) 12.5 mg TID@0700,1500,2200 07/19/18 15:00 07/20/18 15:15 12.5 MG Furosemide (Lasix) 20 mg DAILY 07/20/18 09:00 07/20/18 08:54 20 MG Hydralazine HCl (Apresoline Inj) 10 mg 1X STAT 07/19/18 10:25 07/19/18 10:27 DC 07/19/18 10:30 10 MG Hydralazine HCl (Apresoline) 25 mg DAILY16 07/20/18 17:00 07/20/18 17:39 25 MG Latanoprost (Xalatan) 1 drop QHS 07/19/18 22:30 Cancel Losartan Potassium (Cozaar) 100 mg QHS 07/19/18 21:30 Morphine Sulfate (Morphine Sulfate) 2 mg PRN Q2HR PRN 07/19/18 12:15 07/20/18 12:14 DC 07/19/18 12:18 2 MG Nitroglycerin (Nitrostat) 0.4 mg PRN Q5MIN PRN 07/19/18 12:15 07/20/18 12:14 DC Non-Formulary Medication 1 ea QHS 07/19/18 23:30 07/19/18 23:19 1 EA Non-Formulary Medication (Telmisartan (Micardis)) 1 tab DAILY 07/20/18 09:00 UNV Ondansetron HCl (Zofran) 4 mg PRN Q8HRS PRN 07/19/18 12:15 07/20/18 12:14 DC 07/19/18 18:04 4 MG Pantoprazole Sodium (Protonix) 40 mg DAILYAC 07/20/18 07:30 07/20/18 06:44 40 MG Phenylephrine HCl (Hemorrhoidal) 1 supp PRN Q12HR PRN 07/20/18 10:30 07/20/18 15:15 1 SUPP Warfarin Sodium (Coumadin Per Physician) 1 each PRN DAILY PRN 07/19/18 17:15 Warfarin Sodium (Coumadin) 2.5 mg SuThSa 07/20/18 16:00 07/20/18 17:40 2.5 MG DIAGNOSTIC TESTING: EKG with afib. No new events on tele. Trop neg x 2. ASSESSMENT: 1. Chronic atrial fibrillation - rate controlled 2. HTN - labile - known 3. Atypical chest pain - likely related to atrial fibrillation and BP issues. 4. incontinence PLAN: - Echo in 11/2017 WNL. She had moderate to severe mitral regurgitation. Continue aggressive medical mgt. She has previously declined tx at for her MR> -Her BP regimen is unique but this is what she prefers. -Her presentation is low risk, she can f/u with Dr. Lee and consider further evaluation prn. -We are happy to f/u with her if she wishes. Thanks. Ok to CASIE from CV standpoint. SCOTTY MCDONALD MD July 20, 2018 20:09
[2018-07-20] MEDS: LOSARTAN POTASSIUM 50 MG TABLET. PO SCH (21:02)
[2018-07-20] MEDS: TRAVOPROST 0.004% OU SCH (21:55)
[2018-07-21 03:11] VITALS: BP 154/68
[2018-07-21 07:25] VITALS: BP 192/84
[2018-07-21] MEDS: PANTOPRAZOLE 40 MG TABLET.DR. PO SCH (07:40)
[2018-07-21] MEDS: CARVEDILOL 12.5 MG TABLET. PO SCH (07:40)
[2018-07-21] MEDS: FUROSEMIDE 20 MG TABLET PO SCH (09:00)
--- NOTE | 2018-07-21 11:04 | PDOC3 ---
Discharge Summary Visit Information Date of Admission: July 19, 2018 Date of Discharge: July 21, 2018 Admitting Diagnosis Comment: 1. Chest pain. recent echo Dr Lee 2. Atrial fibrillation. Rate controlled. On Coumadin with therapeutic INR 3. Accelerated hypertension, with some hypotension episodes,. relative 4. Mild heart failure. BNP of 1364. 5. Hyperlipidemia. 6. Diabetes mellitus. 7, Urinary retention and incontinence - rivas out- urology consulted Final Diagnosis Problems Medical Problems: (1) Chest pain Status: Acute (2) Hypertensive urgency Status: Acute (3) Rectal pain Status: Acute Brief Hospital Course Allergies Allergies Coded Allergies Type Severity Reaction Last Updated Verified Sulfa (Sulfonamide Antibiotics) Allergy Intermediate 05/08/16 Yes hydrochlorothiazide Allergy Intermediate 05/08/16 Yes chlorthalidone Allergy Mild upset stomach 07/19/18 Yes amlodipine Adverse Reaction Intermediate 07/19/18 Yes captopril Adverse Reaction Mild itching 07/19/18 Yes clonidine Adverse Reaction Mild hives 07/19/18 Yes diltiazem Adverse Reaction Mild Headache 07/19/18 Yes felodipine Adverse Reaction Mild stomach upset 07/19/18 Yes latanoprost Adverse Reaction Mild itching 07/19/18 Yes metoclopramide Adverse Reaction Mild 07/19/18 Yes potassium Adverse Reaction Mild stomach upset 07/19/18 Yes Vital Signs Vital Signs Date Time Temp Pulse Resp B/P (MAP) Pulse Ox O2 Delivery O2 Flow Rate FiO2 07/21/18 08:05 Room Air 07/21/18 07:40 55 154/68 07/21/18 07:25 98.0 19 98 98.0 Lab Results Laboratory Tests Test 07/19/18 18:45 Troponin I Quantitative < 0.017 ng/mL (0.000-0.055) Brief Hospital Course Ms. Callahan is a 83 old female who usually follows with Dr. Rosa LEMONS cardiology, chest pain. Some element of mild CHF with elevated BNP on admit. Cards consulted, no need to repeat echo. Doing well. WAs initially accelerated hypertension but then systolic came down to 120s. Patient asks me a lot of questions about adjusting meds. I had to educate he avily about her labile hypertension or an isolated episode of hypertension and the rest were normal. I did not change any of her home meds. Instructed to follow-up with her smash hand. Very hard of hearing. Some difficulty in educating maybe because of age. In any case will go home with no change in medications. No PT needs Course remarkable for urinary retention and urinary incontinence needing Rivas catheter and urology consult. Voiding trial done so far doing well. But urology symptoms might most likely will happen again in the future and I provided referral/urology contact info, Unsure if she understood that or if she will ff thru, Baljinder RN at bedside Home today, no change in meds Discharge Information Condition at Discharge: Improved, Stable Follow Up: Weeks (dr Lee as un have prev schedules; dr garcia for urinary sxs if they persist) Disposition/Orders: D/C to Home Scheduled Aspirin (Aspirin Ec) 81 Mg Tablet., 1 TAB PO DAILY for A fib, #30 Ref 3 (Reported) Entered as Reported by: JANINA SHEPPARD RN on 07/19/181748 Last Taken: Unknown Dose on 07/19/181739 Last Action: New Order on 07/19/181748 by JANINA SHEPPARD RN Atorvastatin Calcium (Lipitor) 20 Mg Tablet, 20 MG PO DAILY for High Cholesterol , #30 Ref 0 (Reported) Entered as Reported by: JANINA SHEPPARD RN on 07/19/181748 Last Taken: Unknown Dose on 07/19/181746 Last Action: New Order on 07/19/181748 by JANINA SHEPPARD RN Carvedilol (Coreg) 25 Mg Tablet, 12.5 MG PO BIDWMEALS for CARDIAC, (Reported) Entered as Reported by: JANINA SHEPPARD RN on 07/19/181748 Last Taken: 12.5 mg on 07/19/181742 Last Action: New Order on 07/19/181748 by JANINA SHEPPARD RN Furosemide (Furosemide) 20 Mg Tablet, 1 TAB PO DAILY for A fib, #90 Ref 3 (Reported) Entered as Reported by: JANINA SHEPPARD RN on 07/19/181748 Last Taken: Unknown Dose on 07/19/181738 Last Action: New Order on 07/19/181748 by JANINA SHEPPARD RN Pantoprazole Sodium (Protonix) 20 Mg Tablet.dr, 40 MG PO DAILY07 for Acid Reflux, (Reported) Entered as Reported by: JANINA SHEPPARD RN on 07/19/181748 Last Taken: Unknown Dose on 07/19/181745 Last Action: New Order on 07/19/181748 by JANINA SHEPPARD RN Telmisartan (Micardis) 80 Mg Tablet, 1 TAB PO DAILY for HTN, #30 Ref 5 (Reported) Entered as Reported by: JANINA SHEPPARD RN on 07/19/181748 Last Taken: Unknown Dose on 07/19/18 Last Action: Converted on 07/19/182206 by RYAN AGUIAR Travoprost (Travatan Z) 5 Ml Drops, 1 DROP EACHEYE QHS for HTN, #1 Ref 5 (Reported) Entered as Reported by: JANINA SHEPPARD RN on 07/19/181748 Last Taken: Unknown Dose on 07/19/18 Last Action: Converted on 07/19/182206 by RYAN AGUIAR Warfarin Sodium (Warfarin Sodium) 2.5 Mg Tablet, 2.5 MG PO Sun, Thur, Sat for Afib, (Reported) Entered as Reported by: JANINA SHEPPARD RN on 07/19/181748 Last Taken: Unknown Dose on 07/19/181748 Last Action: New Order on 07/19 by JANINA SHEPPARD RN Warfarin Sodium (Warfarin Sodium) 5 Mg Tablet, 5 MG PO M, T, W, F for A fib, #30 (Reported) Entered as Reported by: JANINA SHEPPARD RN on 07/19/181748 Last Taken: Unknown Dose on 07/19/181748 Last Action: New Order on 07/19/181748 by JANINA SHEPPARD RN Scheduled PRN Hydralazine Hcl (Hydralazine Hcl) 50 Mg Tablet, 1 TAB PO TID PRN for HYPERTENSION, #270 Ref 3 (Reported) Entered as Reported by: JANINA SHEPPARD RN on 07/19/181748 Last Taken: Unknown Dose on 07/19/181740 Last Action: New Order on 07/19/181748 by JANINA SHEPPARD RN Hydralazine Hcl (Hydralazine Hcl) 25 Mg Tablet, 1 TAB PO 1700 PRN for HYPERTENSION, #90 Ref 5 (Reported) Entered as Reported by: JANINA SHEPPARD RN on 07/19/181748 Last Taken: Unknown Dose on 07/19/181742 Last Action: New Order on 07/19/181748 by JANINA SHEPPARD RN Telmisartan (Micardis) 80 Mg Tablet, 1 TAB PO 2100 PRN for HYPERTENSION, #30 Ref 5 (Reported) Entered as Reported by: JANINA SHEPPARD RN on 07/19/181748 Last Taken: Unknown Dose on 07/19/181744 Last Action: Converted on 07/19/182206 by LANEY AGEE MD July 21, 2018 11:04
[2018-07-21 11:27] VITALS: BP 184/86
[2018-07-21 12:09] VITALS: BP 184/86
--- NOTE | 2018-07-21 13:20 | NUR ---
pt was discharged home with self-care. her son came to pick her up. she was wheeled down to the main entrance. no scripts to be given at this time to the pt. she is to see her PCP within a week of discharge. Ck Ngo RN
== END 2018-07-21 13:23 | disposition home or self-care (01) | DRG 305 ==
LOC: ER 09:34 → 6 SOUTH 11:53
PROVIDERS: ADMIT Internal Medicine; ATTEND Internal Medicine
DX: I16.0 Hypertensive urgency (principal); R07.89 Other chest pain; E11.9 Type 2 diabetes mellitus without complications; E78.00 Pure hypercholesterolemia, unspecified; E78.5 Hyperlipidemia, unspecified; F41.9 Anxiety disorder, unspecified; H91.90 Unspecified hearing loss, unspecified ear; I11.0 Hypertensive heart disease with heart failure; I48.2 Chronic atrial fibrillation; I50.9 Heart failure, unspecified; I70.0 Atherosclerosis of aorta; K21.9 Gastro-esophageal reflux disease without esophagitis; K62.89 Other specified diseases of anus and rectum; N39.490 Overflow incontinence; Z79.01 Long term (current) use of anticoagulants; Z82.49 Family history of ischemic heart disease and other diseases of the circulatory system; Z90.49 Acquired absence of other specified parts of digestive tract; Z90.710 Acquired absence of both cervix and uterus; Z88.2 Allergy status to sulfonamides; Z88.8 Allergy status to other drugs, medicaments and biological substances; Z79.899 Other long term (current) drug therapy; Z98.51 Tubal ligation status
CPT/HCPCS: 36415; 71045; 80053; 81001; 83735; 83880; 84484; 85025; 85610; 93005; 96374; 96375; 96376; J0360; J2270; J2405; 99285-25